=== PATIENT | male | born 1965 | race Caucasian/White ===

== ENCOUNTER → 2016-07-26 | Outpatient (CLI) | payer OTHER | END | disposition home or self-care (01) | LOC: LABPAT 10:18 | PROVIDERS: ATTEND Surgery | DX: Z11.2 Encounter for screening for other bacterial diseases (principal) | CPT/HCPCS: 87070 ==

== ENCOUNTER 2016-08-12 08:32 | Day surgery (SDC) | payer OTHER ==
[2016-07-30 15:37] VITALS: BMI 26.6
[~2016-08-12 08:32] MED LIST: DEXAMETHASONE SOD PHOSPHATE 10 MG/ML 1 ML VIAL IV ONE; HEPARIN SODIUM,PORCINE 5,000 UNIT/ML 1 ML VIAL SQ ONE; LIDOCAINE 1% 20 ML VIAL (10MG/ML) FOR IV START INTRADERMA PRN; ONDANSETRON 4 MG/2 ML VIAL IVP ONE; PIPERACILLIN-TAZOBACTAM 3.375 GM in DEXTROSE/WATER 1 50ML.BAG IVPB ONE; SCOPOLAMINE 1.5MG/72HR PATCH TRANSDERM ONE; VANCOMYCIN 1,150 MG in SODIUM CHLORIDE 0.9% 250 ML IVPB ONE; VANCOMYCIN 1,250 MG in SODIUM CHLORIDE 0.9% 250 ML IVPB ONE
--- NOTE | 2016-08-12 09:05 | P.GSHP ---
History of Present Illness H&P Date: 08/12/16 Chief Complaint: Right inguinal hernia 50 yrs presents with right groin bulge and pain. History of Subdural hematoma nd craniotomy at [facility] in 12/2015. He has left sided hemiparesis secondary to stroke. History of mitral valve disorder. Active smoker 1/2- 1PPD ROS Additionally reports: Constitutional: No fever, chills or rigors. No weight loss or loss of appetite. HEENT: No difficulty with hearing, vision and swallowing. Lymphatic: No axillary, inguinal and cervical swellings. Endocrine: No thyroid disorders. Denies history of diabetes. Respiratory: No chest pain, shortness of breath, and cough. No hemoptysis. Cardiovascular: No palpitations, irregular HR Gastrointestinal: Denies heartburn. No change in bowel habits. No nausea or vomiting. Genitourinary: No increase in urinary frequency or urgency. No hematuria. Musculoskeletal: No back pain, joint stiffness or pain. Neurologic: Left hemiparesis Psychiatric: Denies depression or anxiety . No suicidal ideation. Hematologic: Denies any abnormal mucosal bleeding or easy bruising. Physical Exam Patient is a 50-year-old male. Constitutional: General Appearance: too thin. Level of Distress: NAD. Ambulation : ambulation with cane. Psychiatric: Insight: good judgement. Orientation: to time, place, and person. Head: Head: normocephalic and atraumatic. Eyes: Lids and Conjunctivae: no discharge or pallor and non-injected. Sclerae: non-icteric. ENMT: Oropharynx: moist mucous membranes. Abdomen: Bowel Sounds: normal. Inspection and Palpation: no tenderness or guarding and soft and non-distended. Hernia: inguinal KAREN. Musculoskeletal:: Joints, Bones, and Muscles: left hemiparesis . Wears brace .. Extremities: no cyanosis or edema. Neurologic: Gait and Station: irregular gait. Cranial Nerves: grossly intact. Assessment / Plan 1.Bilateral inguinal hernias-reducible/initial 2. Informed consent obtained from the patient after explaining the risks, benefits and potential complications of laparoscopic /robotic ventral hernia including bleeding, infection, bruising, DVT and recurrence and possibility of converting to open 3. Patient demonstrated understanding of the procedure and agreed to undergo laparoscopic/robotic ventral hernia repair with mesh possible open 4. Expected post op course discussed including no heavy lifting >10 lbs for 6 weeks post surgery 5. Cardiac assessment noted- Intermediate to high risk secondary to mitral regurgitation, pulmonary hypertension. Discussed with the patient. 6. Smoking cessation prior to sx Preop orders: 1. Vancomycin and Zosyn IVPB 2. Bilateral lower extremity SCDs 3. Heparin 5000 Units SQ injection x1 1. Bilateral inguinal hernia - Bilateral K40.20: Bilateral inguinal hernia, without obstruction or gangrene, not specified as recurrent CARDIOLOGY REFERRAL - Schedule Within: provider's discretion Past Medical History Past Medical History: CVA/TIA Additional Past Medical History / Comment(s): Son states history of " stroke with mitral valve damage to heart and minimal mobility to left hand." Son states "has not had PCP for past 3 months and so therefore has not been taking any of his previously prescribed medications." History of Any Multi-Drug Resistant Organisms: None Reported Additional Past Surgical History / Comment(s): Hx having hematoma on head incised and drained. Past Anesthesia/Blood Transfusion Reactions: No Reported Reaction Past Psychological History: No Psychological Hx Reported Smoking Status: Current every day smoker Past Alcohol Use History: None Reported Additional Past Alcohol Use History / Comment(s): Smoker for last 20 yrs, 1 PPD. Past Drug Use History: None Reported - Past Family History Father Family Medical History: Diabetes Mellitus, Deep Vein Thrombosis (DVT) Medications and Allergies Home Medications Medication Instructions Recorded Confirmed Type Motrin(Unknown Dose) 07/30/16 History Nicotinepatch (Unknown Dose) 07/30/16 History Tylenol(Unknown Dose) 07/30/16 History Allergies Allergy/AdvReac Type Severity Reaction Status Date / Time No Known Allergies Allergy Verified 07/30/16 15:22
[2016-08-12] MEDS: LACTATED RINGERS 1,000 ML IV SCH ×2 (09:19→09:23)
[2016-08-12] MEDS ORDERED: LIDOCAINE 1% INJ 10MG/ML (20 ML MDV) ONE (09:49)
[2016-08-12] MEDS ORDERED: ROCURONIUM BROMIDE 10 MG/ML 10 ML VIAL IV ONE (09:49)
[2016-08-12] MEDS ORDERED: MIDAZOLAM 2 MG/2 ML VIAL ONE (09:49)
[2016-08-12] MEDS ORDERED: ESMOLOL 100 MG/10 ML VIAL ONE (09:49)
[2016-08-12] MEDS ORDERED: HYDROmorphone (PF) 1 MG/ML ONE (09:49)
[2016-08-12] MEDS ORDERED: fentaNYL (PF) 50 MCG/ML 2 ML AMP ONE (09:49)
[2016-08-12] MEDS ORDERED: SUCCINYLCHOLINE CHLORIDE 100 MG/5 ML SYR IV ONE (09:49)
[2016-08-12] MEDS ORDERED: PROPOFOL 10 MG/ML 20 ML VIAL IV ONE (09:49)
[2016-08-12] MEDS ORDERED: GLYCOPYRROLATE 0.2 MG/ML 2 ML VIAL ONE (09:49)
[2016-08-12] MEDS ORDERED: NEOSTIGMINE 1 MG/ML 10 ML VIAL ONE (09:49)
[2016-08-12] MEDS ORDERED: BUPIVACAIN-EPI 0.25%-1:200,000 30 ML VIAL SQ ONE ×2 (10:13)
[2016-08-12] MEDS ORDERED: LACTATED RINGERS 1,000 ML IV ONE ×2 (11:33→15:26)
[2016-08-12 12:50] VITALS: TEMP 98.4
[2016-08-12] MEDS ORDERED: ONDANSETRON 4 MG/2 ML VIAL IVP ONE (12:53)
[2016-08-12] MEDS: HYDROmorphone 1 MG/ML 1 ML SYRINGE IVP PRN ×2 (12:57→13:03)
[2016-08-12 13:16] VITALS: RESP 16
[2016-08-12] MEDS ORDERED: HYDROcodone/APAP 5-325MG 1 EACH TAB PO ONE (14:14)
[2016-08-12 15:47] VITALS: BP 157/94; PULSE 103
--- NOTE | 2016-09-30 18:03 | P.OP ---
Date of Procedure: 08/12/16 Preoperative Diagnosis: Right inguinal hernia Postoperative Diagnosis: Same Procedure(s) Performed: RObotic assist laparoscopic right inguinal hernia repair with mesh Implants: Covidien Progrip Anesthesia: DEREKA, local Surgeon: Jade Iglesias Pathology: none sent Condition: stable Disposition: PACU Indications for Procedure: 50 yrs old male presents with right inguinal hernia. Informed consent obtained for robotic assist laparoscopic right inguinal hernia repair with mesh possible bilateral. Operative Findings: Right indirect hernia Description of Procedure: The patient was brought to the operating room and placed in supine position. General anesthesia with endotracheal intubation was performed as per anesthesia team. Both arms were tucked against the abdominal wall and a shunt was positioned in lithotomy using yellowfin stirrups. A mckeon catheter was inserted under sterile aseptic precautions. Chlorhexidine was used to prep the skin followed by application of sterile drapes and Ioban dressing. A timeout was performed to verify correct patient, correct procedure and correct side. Patient was confirmed to receive perioperative IV antibiotics, subcutaneous heparin 5000 units and bilateral SCDs were placed. A 2 mm skin incision was made in the left subcostal area and Veress needle was inserted to establish pneumoperitoneum to a pressure of 15 mmHg. A 1.5 cm supraumbilical incision was made which was deepened through the subcutaneous tissue . Two additional 8 mm skin incisions were made on either side of the midline approximately 8 cm away. A 5 mm 30 laparoscope was used to enter the peritoneum using direct Optiview technique. A 12 mm robotic trocar was inserted in the supraumbilical area and 8 mm robotic trocars were inserted on either side of the midline. The patient was placed in Trendelenburg position and the robot was brought in between the legs. The robotic arms including the camera arm were docked on the trocars. The robotic prograsp and monopolar scissors were introduced via arm 1 and 2 respectively. Upon inspection of the peritoneal cavity, right indirect hernia was identified. The heard anatomical landmarks including the pubic symphysis, median and medial umbilical ligaments and bilateral epigastric vessels were identified. Using monopolar scissors a peritoneal flap was created extending medially from the median umbilical ligament and laterally to the direct hernia space. Using gentle traction and countertraction the flap was developed posteriorly. Loose fibrofatty tissue was bluntly dissected. Medially the dissection was carried along the Nilson's ligament till pubic tubercle was identified. Care was taken to stay away from the urinary bladder. Dissection was carried out to leave the epigastric vessels against the anterior abdominal wall and laterally beyond the hernia defect. The indirect hernia sac was completely reduced. The iliofemoral vessels were identified. The peritoneal reflection overlying the spermatic cord was also dissected off. Care was taken not to injure any gonadal vessels or spermatic cord. Enough inferior dissection was carried out 2 cm below the hernia defect. No direct hernia noted. Laparoscopic Covidien progrip mesh was rolled and introduced through the 12 mm camera port. The right mesh was placed in the preperitoneal cavity with green portion overlying the pubic tubercle . The mesh was rolled upwards so that the mesh covered the direct , indirect inguinal hernia and the femoral hernia space without any kinks or folds. The peritoneal flap was then sutured to the cut edge of the peritoneum using continuous 2-0 V lock sutures. The hernia sac was completely reduced and the mesh lay flat without any kinks or folds. The robotic arms were then undocked and 30 degree laparoscope was inserted. All the needles were removed from the abdominal cavity. The 12 mm camera trocar site was closed with 2 transfascial sutures of 0 Vicryl. The sponge, instrument and needle count were correct x2. The skin was closed with interrupted sutures of 4-0 Monocryl. Dermabond skin glue was applied followed by Telfa and Tegaderm dressing. Mckeon catheter was removed and scrotum was palpated to confirm the position of the testicles. The patient tolerated the procedure well and was taken to post anesthesia care unit in stable condition
== END 2016-08-12 16:25 | disposition home or self-care (01) ==
LOC: OR 08:32
PROVIDERS: ATTEND Surgery
DX: K40.90 Unilateral inguinal hernia, without obstruction or gangrene, not specified as recurrent (principal); K41.90 Unilateral femoral hernia, without obstruction or gangrene, not specified as recurrent; I27.2 Other secondary pulmonary hypertension; I69.354 Hemiplegia and hemiparesis following cerebral infarction affecting left non-dominant side; I10 Essential (primary) hypertension; F17.200 Nicotine dependence, unspecified, uncomplicated; I34.0 Nonrheumatic mitral (valve) insufficiency; E78.2 Mixed hyperlipidemia; Z79.899 Other long term (current) drug therapy; Z79.1 Long term (current) use of non-steroidal anti-inflammatories (NSAID)
CPT/HCPCS: 93005; 49650; 49659; C1781; J2250; J3370; J1644; J1100; J2710; J2405; J2001; J3010; J1170; J2543; J0330; J2704

== ENCOUNTER 2017-01-24 18:27 | Inpatient (IN) | payer OTHER ==
[2017-01-24] MEDS ORDERED: SODIUM CHLORIDE 0.9% 500 ML IV STA (18:56)
[2017-01-24] MEDS ORDERED: IPRATROPIUM 0.5 MG/2.5 ML NEBU INHALATION STA (18:56)
[2017-01-24] MEDS ORDERED: ALBUTEROL NEBULIZED 2.5 MG/3 ML INHALATION STA (18:56)
[2017-01-24] MEDS ORDERED: SODIUM CHLORIDE 0.9% 1,000 ML IV STA (18:56)
--- NOTE | 2017-01-24 18:56 | ED ---
General Adult HPI - General Chief complaint: Chest Pain Stated complaint: chest tightness, elham, Hx COPD Time Seen by Provider: 01/24/17 18:33 Source: patient, RN notes reviewed, old records reviewed Mode of arrival: wheelchair Limitations: no limitations - History of Present Illness Initial comments: This is a 51-year-old male here with chest tightness or severe chest tightness 1 week. History of COPD, patient has significant chest soreness chest pain and shortness of breath. Racing. No change in medications, denies drugs or alcohol. No fevers - Related Data Home Medications Medication Instructions Recorded Confirmed Cpm/PE/Dm/Acetaminophen/Guaifn 2 tab PO Q4H PRN 01/24/17 01/24/17 [Tylenol Cold-Flu Day-Nt Caplet] Allergies Allergy/AdvReac Type Severity Reaction Status Date / Time No Known Allergies Allergy Verified 01/24/17 19:09 Review of Systems ROS Statement: Those systems with pertinent positive or pertinent negative responses have been documented in the HPI. ROS Other: All systems not noted in ROS Statement are negative. Past Medical History Past Medical History: CVA/TIA Additional Past Medical History / Comment(s): Son states history of " stroke with mitral valve damage to heart and minimal mobility to left hand." Son states "has not had PCP for past 3 months and so therefore has not been taking any of his previously prescribed medications." History of Any Multi-Drug Resistant Organisms: None Reported Additional Past Surgical History / Comment(s): Hx having hematoma on head incised and drained. Past Anesthesia/Blood Transfusion Reactions: No Reported Reaction Past Psychological History: No Psychological Hx Reported Smoking Status: Current every day smoker Past Alcohol Use History: None Reported Past Drug Use History: None Reported - Past Family History Father Family Medical History: Diabetes Mellitus, Deep Vein Thrombosis (DVT) General Exam Limitations: no limitations General appearance: anxious Head exam: Present: atraumatic, normocephalic, normal inspection Eye exam: Present: normal appearance, PERRL, EOMI. Absent: scleral icterus, conjunctival injection, periorbital swelling ENT exam: Present: normal exam, mucous membranes moist Neck exam: Present: normal inspection. Absent: tenderness, meningismus, lymphadenopathy Respiratory exam: Present: normal lung sounds bilaterally, wheezes. Absent: respiratory distress, rales, rhonchi, stridor Cardiovascular Exam: Present: tachycardia, irregular rhythm, normal heart sounds. Absent: systolic murmur, diastolic murmur, rubs, gallop, clicks GI/Abdominal exam: Present: soft, normal bowel sounds. Absent: distended, tenderness, guarding, rebound, rigid Extremities exam: Present: normal inspection, full ROM, normal capillary refill. Absent: tenderness, pedal edema, joint swelling, calf tenderness Back exam: Present: normal inspection Neurological exam: Present: alert, oriented X3, CN II-XII intact Psychiatric exam: Present: normal affect, normal mood Skin exam: Present: warm, dry, intact, normal color. Absent: rash Course Vital Signs 01/24/17 01/24/17 01/24/17 18:29 19:10 19:22 Temperature 97.4 F L Pulse Rate 107 H 110 H 107 H Respiratory 18 20 Rate Blood Pressure 114/86 123/75 O2 Sat by Pulse 98 100 Oximetry 01/24/17 01/24/17 01/24/17 19:35 19:42 19:48 Temperature Pulse Rate 112 H 106 H 103 H Respiratory 20 Rate Blood Pressure 117/80 O2 Sat by Pulse 100 Oximetry EKG Findings - EKG Comments: EKG Findings:: EKG shows A. fib with RVR rate of 113, QRS 108, QTC 477 Medical Decision Making - Medical Decision Making 51 male to the ER with chest pain shortness of breath. History of COPD CT negative will admit for COPD and A. fib with RVR - Lab Data Result diagrams: 01/24/17 18:55 01/24/17 18:55 Lab Results 01/24/17 01/24/17 01/24/17 Range/Units 18:55 18:55 18:55 WBC 8.5 (3.8-10.6) k/uL RBC 4.12 L (4.30-5.90) m/uL Hgb 12.9 L (13.0-17.5) gm/dL Hct 40.0 (39.0-53.0) % MCV 97.1 (80.0-100.0) fL MCH 31.3 (25.0-35.0) pg MCHC 32.2 (31.0-37.0) g/dL RDW 15.0 (11.5-15.5) % Plt Count 250 (150-450) k/uL Neutrophils % 70 % Lymphocytes % 22 % Monocytes % 4 % Eosinophils % 1 % Basophils % 0 % Neutrophils # 5.9 (1.3-7.7) k/uL Lymphocytes # 1.9 (1.0-4.8) k/uL Monocytes # 0.4 (0-1.0) k/uL Eosinophils # 0.1 (0-0.7) k/uL Basophils # 0.0 (0-0.2) k/uL Hypochromasia Moderate PT (9.0-12.0) sec INR (<1.2) APTT (22.0-30.0) sec D-Dimer (<0.60) mg/L FEU Sodium 142 (137-145) mmol/L Potassium 4.2 (3.5-5.1) mmol/L Chloride 110 H (98-107) mmol/L Carbon Dioxide 22 (22-30) mmol/L Anion Gap 10 mmol/L BUN 21 H (9-20) mg/dL Creatinine 1.16 (0.66-1.25) mg/dL Est GFR (MDRD) Af Amer >60 (>60 ml/min/1.73 sqM) Est GFR (MDRD) Non-Af >60 (>60 ml/min/1.73 sqM) Glucose 84 (74-99) mg/dL Calcium 8.9 (8.4-10.2) mg/dL Magnesium 1.6 (1.6-2.3) mg/dL Total Bilirubin 0.4 (0.2-1.3) mg/dL AST 22 (17-59) U/L ALT 28 (21-72) U/L Alkaline Phosphatase 64 (38-126) U/L Total Creatine Kinase 82 (55-170) U/L CK-MB (CK-2) 2.7 H* (0.0-2.4) ng/mL CK-MB (CK-2) Rel Index 3.3 Troponin I <0.012 (0.000-0.034) ng/mL NT-Pro-B Natriuret Pep pg/mL Total Protein 7.2 (6.3-8.2) g/dL Albumin 4.1 (3.5-5.0) g/dL 01/24/17 01/24/17 Range/Units 18:55 18:55 WBC (3.8-10.6) k/uL RBC (4.30-5.90) m/uL Hgb (13.0-17.5) gm/dL Hct (39.0-53.0) % MCV (80.0-100.0) fL MCH (25.0-35.0) pg MCHC (31.0-37.0) g/dL RDW (11.5-15.5) % Plt Count (150-450) k/uL Neutrophils % % Lymphocytes % % Monocytes % % Eosinophils % % Basophils % % Neutrophils # (1.3-7.7) k/uL Lymphocytes # (1.0-4.8) k/uL Monocytes # (0-1.0) k/uL Eosinophils # (0-0.7) k/uL Basophils # (0-0.2) k/uL Hypochromasia PT 11.7 (9.0-12.0) sec INR 1.2 H (<1.2) APTT 23.5 (22.0-30.0) sec D-Dimer 2.31 H (<0.60) mg/L FEU Sodium (137-145) mmol/L Potassium (3.5-5.1) mmol/L Chloride (98-107) mmol/L Carbon Dioxide (22-30) mmol/L Anion Gap mmol/L BUN (9-20) mg/dL Creatinine (0.66-1.25) mg/dL Est GFR (MDRD) Af Amer (>60 ml/min/1.73 sqM) Est GFR (MDRD) Non-Af (>60 ml/min/1.73 sqM) Glucose (74-99) mg/dL Calcium (8.4-10.2) mg/dL Magnesium (1.6-2.3) mg/dL Total Bilirubin (0.2-1.3) mg/dL AST (17-59) U/L ALT (21-72) U/L Alkaline Phosphatase (38-126) U/L Total Creatine Kinase (55-170) U/L CK-MB (CK-2) (0.0-2.4) ng/mL CK-MB (CK-2) Rel Index Troponin I (0.000-0.034) ng/mL NT-Pro-B Natriuret Pep 4580 pg/mL Total Protein (6.3-8.2) g/dL Albumin (3.5-5.0) g/dL Critical Care Time Critical Care Time: Yes Total Critical Care Time: 31 Disposition Clinical Impression: Chest pain, COPD with acute bronchitis, Atrial fibrillation with RVR Disposition: ADMITTED IP TO THIS HOSP Condition: Fair Referrals: Aishwarya Godinez MD [Primary Care Provider] - 1-2 days
[2017-01-24 19:19] LABS: ALT 28 U/L (21-72); AST 22 U/L (17-59); Alkaline Phosphatase 64 U/L (38-126); Anion Gap 10 mmol/L; Blood Urea Nitrogen 21 mg/dL (9-20); Calcium 8.9 mg/dL (8.4-10.2); Carbon Dioxide 22 mmol/L (22-30); Chloride 110 mmol/L (98-107); Glucose 84 mg/dL (74-99); Magnesium 1.6 mg/dL (1.6-2.3); Non-African American GFR(MDRD) >60 (>60 ml/min/1.73 sqM); Potassium 4.2 mmol/L (3.5-5.1); Sodium 142 mmol/L (137-145); Total Bilirubin 0.4 mg/dL (0.2-1.3); Total Protein 7.2 g/dL (6.3-8.2)
[2017-01-24] MEDS ORDERED: DILTIAZEM 5 MG/ML 5 ML VIAL IVP STA (19:22)
[2017-01-24 19:28] LABS: Basophils % (A) 0 %; CH 29.9; CHCM 30.9; Eosinophils # (A) 0.1 k/uL (0-0.7); Eosinophils % (A) 1 %; HDW 2.82; HGB 12.9 gm/dL (13.0-17.5); Hypochromasia Moderate; Luc # (Auto) 0.21; Luc % (Auto) 2; Lymphocytes # (A) 1.9 k/uL (1.0-4.8); Lymphocytes % (A) 22 %; MCH 31.3 pg (25.0-35.0); MCHC 32.2 g/dL (31.0-37.0); MCV 97.1 fL (80.0-100.0); Mean Platelet Volume 7.9; Monocytes # (A) 0.4 k/uL (0-1.0); Monocytes % (A) 4 %; Neutrophils # (A) 5.9 k/uL (1.3-7.7); Neutrophils % (A) 70 %; RBC 4.12 m/uL (4.30-5.90); WBC 8.5 k/uL (3.8-10.6); WBC (Perox) 9.16
[2017-01-24] MEDS ORDERED: DILTIAZEM 125 MG in SODIUM CHLORIDE 0.9% 100 ML IV ONE (19:30)
[2017-01-24 19:31] LABS: Creatine Kinase 82 U/L (55-170); INR 1.2 (<1.2); Partial Thromboplastin Time 23.5 sec (22.0-30.0); Prothrombin Time 11.7 sec (9.0-12.0)
[2017-01-24 19:44] LABS: Troponin I <0.012 ng/mL (0.000-0.034)
[2017-01-24 19:50] LABS: Creatine Kinase MB 2.7 ng/mL (0.0-2.4)
[2017-01-24] MEDS ORDERED: IPRATROPIUM-ALBUTEROL 3 ML NEB INHALATION STA (20:01)
[2017-01-24] MEDS ORDERED: RX INFO: IV CONTRAST WAS GIVEN 1 EACH MISC MISCELLANE PRN (20:01)
[2017-01-24] MEDS ORDERED: HEPARIN SODIUM,PORCINE 5,000 UNIT/ML 1 ML VIAL IV ONE (20:01)
[2017-01-24] MEDS ORDERED: HEPARIN SODIUM,PORCINE 5,000 UNIT/ML 1 ML VIAL IV PRN (20:01)
[2017-01-24] MEDS ORDERED: ASPIRIN 81 MG CHEW PO STA (20:01)
[2017-01-24] MEDS ORDERED: NITROGLYCERIN SL TABS 0.4 MG TAB SUBLINGUAL PRN (20:01)
[2017-01-24] MEDS ORDERED: MORPHINE SULFATE 4 MG/ML SYRINGE IVP PRN (20:04)
[2017-01-24] MEDS ORDERED: MORPHINE SULFATE 4 MG/ML SYRINGE IVP STA (20:04)
--- NOTE | 2017-01-24 20:52 | CT ---
EXAMINATION TYPE: CT angio chest DATE OF EXAM: 01/24/2017 8:37 PM COMPARISON: NONE HISTORY: Difficulty breathing and chest tightness. CT DLP: 382.70 mGycm Automated exposure control for dose reduction was used. CONTRAST: CTA scan of the thorax is performed with IV Contrast, patient injected with 82 mL of Omnipaque 350, p ulmonary embolism protocol. There are 3-D post processed images.. FINDINGS: There is diffuse pulmonary emphysema. There is small right pleural effusion. There is coarse intersti tial density in the subpleural lung bases. There is mild consolidation and atelectasis at the posteri or lung bases as well. Heart is enlarged. There is significant enlargement of the left atrium. I see no filling defects in the pulmonary arteries. There is no evidence of aortic aneurysm. There ar e multiple mediastinal lymph nodes that measure up to 2 cm. There are left bronchial lymph nodes up t o 1 cm. The bony thorax is intact.. IMPRESSION: NO EVIDENCE OF PULMONARY EMBOLISM. CARDIOMEGALY AND RIGHT PLEURAL EFFUSION. BASILAR PULMONARY INFILTR ATES AND FIBROTIC CHANGES. THERE COULD BE CONGESTIVE HEART FAILURE. MARKED ENLARGEMENT OF THE LEFT ATRIUM THAT COULD RELATE TO MITRAL STENOSIS. MILD MEDIASTINAL ADENOPATHY.
[2017-01-24] MEDS: HEPARIN SODIUM,PORCINE/D5W PMX 25,000 UNIT in DEXTROSE/WATER 1 500ML.BAG IV SCH (21:06)
[2017-01-24] MEDS: METOPROLOL TARTRATE 50 MG TAB PO SCH (22:53)
[2017-01-24] MEDS: IPRATROPIUM-ALBUTEROL 3 ML NEB INHALATION SCH (23:42)
[2017-01-25] MEDS ORDERED: IPRATROPIUM-ALBUTEROL 3 ML NEB INHALATION SCH
[2017-01-25 02:17] LABS: Creatine Kinase 72 U/L (55-170)
[2017-01-25 02:31] LABS: Creatine Kinase MB 2.1 ng/mL (0.0-2.4); Troponin I <0.012 ng/mL (0.000-0.034)
[2017-01-25] MEDS: IPRATROPIUM-ALBUTEROL 3 ML NEB INHALATION SCH ×4 (07:38→20:54)
[2017-01-25 08:42] LABS: Mean Platelet Volume 8.8
[2017-01-25] MEDS ORDERED: ASPIRIN 325 MG TAB PO SCH (09:00)
[2017-01-25] MEDS: METOPROLOL TARTRATE 50 MG TAB PO SCH ×3 (09:04→20:42)
[2017-01-25 09:13] LABS: Cholesterol 145 mg/dL (<200); HDL Cholesterol 36 mg/dL (40-60)
[2017-01-25 09:17] LABS: Creatine Kinase 68 U/L (55-170)
[2017-01-25 09:30] LABS: Creatine Kinase MB 2.3 ng/mL (0.0-2.4); Troponin I <0.012 ng/mL (0.000-0.034)
[2017-01-25] MEDS ORDERED: ACETAMINOPHEN TAB 325 MG TAB PO PRN (10:45)
--- NOTE | 2017-01-25 11:13 | P.HPIM ---
History of Present Illness H&P Date: 01/25/17 Chief Complaint: Shortness of breath and chest tightness This is a 51-year-old gentleman with past medical history noted below significant for history of CVA with residual left-sided hemiparesis, underlying COPD, and history of paroxysmal atrial fibrillation who presented to the hospital with worsening shortness of breath and chest tightness. Patient said that his symptoms started a few days ago with worsening shortness of breath and cough that was initially productive of yellowish sputum. He said that shortness of breath got progressively worse. Yesterday he started having chest tightness and was more concerned and decided to come to the emergency room for further evaluation. Patient said that he did not have follow-up with his primary care physician for over a year. He is not taking any medications at home. He did not have a good reason why he lost follow-up or why he is not taking any medications at home. He was scheduled to see me as a new patient next week. In the emergency room, 12-lead EKG showed atrial fibrillation with rapid ventricular response. Patient was noted to have an elevated d-dimer the CT angiogram showed no evidence of PE. Patient was started on IV Cardizem drip and IV heparin was admitted to telemetry floor for further evaluation. He remained hemodynamically stable. Review of Systems Review of system: 14 points review of systems were obtained and were negative except to what were mentioned in the HPI. Past Medical History Past Medical History: COPD, CVA/TIA Additional Past Medical History / Comment(s): Son states history of " stroke with mitral valve damage to heart and minimal mobility to left hand." Son states "has not had PCP for past 3 months and so therefore has not been taking any of his previously prescribed medications." History of Any Multi-Drug Resistant Organisms: MRSA Date of last positivie culture/infection: 2007 MDRO Source:: Blood Past Surgical History: Hernia Repair Additional Past Surgical History / Comment(s): Hx having hematoma on head incised and drained. inguinal hernia repair Past Anesthesia/Blood Transfusion Reactions: No Reported Reaction Past Psychological History: No Psychological Hx Reported Smoking Status: Former smoker Past Alcohol Use History: None Reported Additional Past Alcohol Use History / Comment(s): Smoker for last 20 yrs, 1 PPD. patient stated quiting this year in October Past Drug Use History: None Reported - Past Family History Father Family Medical History: Diabetes Mellitus, Deep Vein Thrombosis (DVT) Medications and Allergies Home Medications Medication Instructions Recorded Confirmed Type Cpm/PE/Dm/Acetaminophen/Guaifn 2 tab PO Q4H PRN 01/24/17 01/24/17 History [Tylenol Cold-Flu Day-Nt Caplet] Allergies Allergy/AdvReac Type Severity Reaction Status Date / Time No Known Allergies Allergy Verified 01/24/17 19:09 Physical Exam Vitals: Vital Signs Temp Pulse Pulse Resp BP BP Pulse Ox 01/25/17 09:09 97.5 F L 88 16 107/76 94 L 01/25/17 09:00 16 01/25/17 07:51 96 01/25/17 07:38 92 99 01/25/17 04:00 84 16 104/65 99 01/24/17 22:31 97.1 F L 93 18 120/81 99 01/24/17 22:10 97.4 F L 90 18 127/68 97 01/24/17 21:52 95 01/24/17 21:37 95 01/24/17 21:00 97 18 116/68 97 01/24/17 19:48 103 H 01/24/17 19:42 106 H 20 117/80 100 01/24/17 19:35 112 H 01/24/17 19:22 107 H 20 123/75 100 01/24/17 19:10 110 H 01/24/17 18:29 97.4 F L 107 H 18 114/86 98 Intake and Output 01/24/17 01/25/17 01/25/17 22:59 06:59 14:59 Intake Total 109.155 150.024 Output Total 1 Balance 108.155 150.024 Intake: Intake, IV Titration 109.155 150.024 Amount Heparin Sodium,Porcine/ 109.155 150.024 D5w Pmx 25,000 unit In Dextrose/Water 1 500ml. bag @ 12 UNITS/KG/HR 19. 15 mls/hr IV .Q24H [facility] Rx #:[id number] Output: Urine/Stool Mix 1 Other: Weight 68.9 kg 68.9 kg General: The patient is awake and alert, in no distress, and does not appear acutely ill. Eye: extra-ocular movements are intact; there is normal conjunctiva bilaterally. . Neck: The neck is supple, there is no tenderness or JVD. Cardiovascular: Normal S1-S2, no S3-S4, no murmurs. Respiratory: Lungs are diminished bilaterally with end expiratory wheezing. Gastrointestinal: Abdomen is soft, nontender, nondistended, with no organomegaly. Musculoskeletal: There is no pedal edema. There is chronic contracture of the left upper extremity Neurological: Speech is normal. Skin: Skin is warm and dry Results CBC & Chem 7: 01/25/17 08:29 01/24/17 18:55 Labs: Abnormal Lab Results - Last 24 Hours (Table) 01/24/17 01/24/17 01/24/17 Range/Units 18:55 18:55 18:55 RBC 4.12 L (4.30-5.90) m/uL Hgb 12.9 L (13.0-17.5) gm/dL INR (<1.2) APTT (22.0-30.0) sec D-Dimer (<0.60) mg/L FEU Chloride 110 H (98-107) mmol/L BUN 21 H (9-20) mg/dL CK-MB (CK-2) 2.7 H* (0.0-2.4) ng/mL HDL Cholesterol (40-60) mg/dL 01/24/17 01/25/17 01/25/17 Range/Units 18:55 01:36 08:29 RBC (4.30-5.90) m/uL Hgb (13.0-17.5) gm/dL INR 1.2 H (<1.2) APTT 37.4 H (22.0-30.0) sec D-Dimer 2.31 H (<0.60) mg/L FEU Chloride (98-107) mmol/L BUN (9-20) mg/dL CK-MB (CK-2) (0.0-2.4) ng/mL HDL Cholesterol 36 L (40-60) mg/dL 01/25/17 Range/Units 08:29 RBC (4.30-5.90) m/uL Hgb (13.0-17.5) gm/dL INR (<1.2) APTT 36.5 H (22.0-30.0) sec D-Dimer (<0.60) mg/L FEU Chloride (98-107) mmol/L BUN (9-20) mg/dL CK-MB (CK-2) (0.0-2.4) ng/mL HDL Cholesterol (40-60) mg/dL Thrombosis Risk Factor Assmnt - Choose All That Apply Any of the Below Risk Factors Present?: Yes Each Factor Represents 1 point: Abnormal pulmonary function (COPD), Age 41-60 years Thrombosis Risk Factor Assessment Total Risk Factor Score: 2 Thrombosis Risk Factor Assessment Level: Low Risk Assessment and Plan Plan: 1. Paroxysmal atrial fibrillation with rapid ventricular response on presentation 2. Acute COPD exacerbation 3. Acute bacterial bronchitis 4. History of CVA with residual left-sided hemiparesis Today, I reviewed his medication list and lab work resolved. Patient is maintained on IV Cardizem drip awaiting cardiology evaluation. He is on anticoagulation with IV heparin and bridge with Coumadin. Would obtain echocardiogram of the heart. Would monitor INR daily. We will continue IV steroids and bronchodilators around the clock. Pulmonology consulted for further evaluation. Patient is a former smoker and said that he quit approximately a week ago. Encouraged to continue his effort in regards of smoking cessation. Which finish 5 days of azithromycin 500 mg daily for suspected bronchitis. Continue current regimen otherwise. Repeat lab work in the morning. Appreciate parts consultant's recommendations.
[2017-01-25] MEDS: FUROSEMIDE 20 MG TAB PO SCH (11:30)
[2017-01-25] MEDS: methylPREDNISolone SOD SUCCI 40 MG/ML 1 ML VIAL IV SCH ×3 (12:19→23:07)
[2017-01-25] MEDS: AZITHROMYCIN 500 MG TAB PO SCH (12:19)
--- NOTE | 2017-01-25 15:02 | CONS ---
CONSULTATION Mr. Lopez came in complaining of shortness of breath for the last 1 week or so. No chest discomfort or loss of consciousness. He was found to be in atrial fibrillation with a heart rate of about 130 beats per minute. He was started on IV Cardizem 5 mg/h. He was on carvedilol previously according to Dr. Whitfield's note. He is a patient of Dr. Whitfield in the office. REVIEW OF SYSTEMS: He denies any fever, chills or rigors. No cough or expectoration. No nausea, vomiting, diarrhea, dysuria. No strokes, seizures or skin lesions. No musculoskeletal complaints. PAST HISTORY: Significant mitral regurgitation secondary to an infective endocarditis. He has been evaluated at [facility] many years back. He opted not to have surgery. According to Dr. Whitfield's note his LV size and function was normal earlier this year with a severely dilated left atrium with severe mitral regurgitation. Dobutamine stress echo did not show any evidence for ischemia. There was Dobutamine induced supraventricular tachycardia. Past history of hypertension, dyslipidemia, severe mitral regurgitation, severe pulmonary hypertension. No documented history of atrial fibrillation in the past but during the dobutamine infusion the note states supraventricular tachycardia was noted. FAMILY HISTORY: Noncontributory. MEDICATIONS: Medications at home include: Captopril, carvedilol, simvastatin and other medications. The rest of the lest is documented in the EMR note. PHYSICAL EXAMINATION: On examination, his blood pressure is 107/76 mmHg. He is afebrile at 97.5 degrees Fahrenheit, heart rate in the 80s on IV Cardizem 5 mg an hour along with metoprolol 50 mg twice daily. Head and neck examination shows mild JVD. Breath sounds are reduced bilaterally with no rhonchi and no crackles. Extremities are warm and there is no edema. Precordial auscultation reveals a murmur of mitral regurgitation. No S3 gallop. IMPRESSION: 1. Severe mitral regurgitation. 2. New diagnosis of atrial fibrillation with mild increase in heart rate. 3. A very dilated left atrium previously with LV function reasonably preserved. SUGGEST: 1. 2D echo and Doppler study. 2. Rate control for atrial fibrillation. 3. Anticoagulation with IV heparin followed by Coumadin. 4. I would be treat him with low-dose Lasix 40 mg p.o. daily. Watch his BUN and creatinine and upon discharge treat him with a very low dose of oral Lasix either 20-40 mg p.o. daily. He does not take Lasix at home. 5. His labs are reviewed and his hemoglobin is 12.9. BUN and creatinine are normal. Sodium is normal and troponins are normal. NT proBNP is 4580, LDL is 91. I would check a TSH level on him also. 6. He will follow with Dr. Whitfield as an outpatient. 7. Plan is anticoagulation and rate control in the hospital and very low-dose diuretics and then discharge and follow with Dr. Whitfield. He already had appointment with him. MMODL / IJN: [id number] /
[2017-01-25] MEDS: HEPARIN SODIUM,PORCINE/D5W PMX 25,000 UNIT in DEXTROSE/WATER 1 500ML.BAG IV SCH (16:13)
[2017-01-25] MEDS: MORPHINE SULFATE 4 MG/ML SYRINGE IVP PRN (16:21)
[2017-01-25] MEDS: WARFARIN 5 MG TAB PO SCH (17:51)
[2017-01-25] MEDS ORDERED: WARFARIN 2.5 MG TAB PO SCH (18:00)
[2017-01-25] MEDS ORDERED: METOPROLOL TARTRATE 50 MG TAB PO STA (23:20)
[2017-01-25] MEDS: IPRATROPIUM-ALBUTEROL 3 ML NEB INHALATION PRN (23:41)
[2017-01-26] MEDS: ALPRAZolam 0.5 MG TAB PO PRN ×2 (02:22→20:51)
[2017-01-26] MEDS: DILTIAZEM 125 MG in SODIUM CHLORIDE 0.9% 100 ML IV SCH (03:45)
[2017-01-26 06:23] LABS: Basophils % (A) 0 %; CH 30.7; CHCM 30.8; Eosinophils # (A) 0.1 k/uL (0-0.7); Eosinophils % (A) 1 %; HCT 38.2 % (39.0-53.0); HDW 2.82; HGB 11.7 gm/dL (13.0-17.5); Hypochromasia Moderate; Luc # (Auto) 0.09; Luc % (Auto) 1; Lymphocytes # (A) 1.1 k/uL (1.0-4.8); Lymphocytes % (A) 11 %; MCH 30.8 pg (25.0-35.0); MCHC 30.7 g/dL (31.0-37.0); MCV 100.1 fL (80.0-100.0); Macrocytosis Slight; Mean Platelet Volume 8.7; Monocytes # (A) 0.4 k/uL (0-1.0); Monocytes % (A) 4 %; Neutrophils # (A) 8.3 k/uL (1.3-7.7); Neutrophils % (A) 84 %; RBC 3.81 m/uL (4.30-5.90); WBC 9.9 k/uL (3.8-10.6); WBC (Perox) 10.77
[2017-01-26 06:43] LABS: INR 1.3 (<1.2); Prothrombin Time 12.4 sec (9.0-12.0)
[2017-01-26 06:59] LABS: ALT 30 U/L (21-72); AST 25 U/L (17-59); Alkaline Phosphatase 64 U/L (38-126); Anion Gap 15 mmol/L; Blood Urea Nitrogen 31 mg/dL (9-20); Calcium 9.1 mg/dL (8.4-10.2); Carbon Dioxide 16 mmol/L (22-30); Chloride 109 mmol/L (98-107); Glucose 139 mg/dL (74-99); Magnesium 1.7 mg/dL (1.6-2.3); Non-African American GFR(MDRD) 56 (>60 ml/min/1.73 sqM); Potassium 5.1 mmol/L (3.5-5.1); Sodium 140 mmol/L (137-145); Total Bilirubin 0.3 mg/dL (0.2-1.3)
[2017-01-26] MEDS: IPRATROPIUM-ALBUTEROL 3 ML NEB INHALATION SCH ×4 (08:13→18:56)
[2017-01-26] MEDS: HEPARIN SODIUM,PORCINE/D5W PMX 25,000 UNIT in DEXTROSE/WATER 1 500ML.BAG IV SCH (08:19)
[2017-01-26] MEDS: MORPHINE SULFATE 4 MG/ML SYRINGE IVP PRN ×3 (08:20→22:46)
[2017-01-26] MEDS: FUROSEMIDE 20 MG TAB PO SCH (08:21)
[2017-01-26] MEDS: METOPROLOL TARTRATE 50 MG TAB PO SCH ×2 (08:21→20:49)
[2017-01-26] MEDS: methylPREDNISolone SOD SUCCI 40 MG/ML 1 ML VIAL IV SCH ×3 (08:21→22:47)
[2017-01-26] MEDS: AZITHROMYCIN 500 MG TAB PO SCH (08:21)
[2017-01-26] MEDS ORDERED: Magnesium Replacement Protocol 1 EACH MISC MISCELLANE PRN (09:20)
[2017-01-26] MEDS: FAMOTIDINE 20 MG TAB PO SCH (10:03)
[2017-01-26] MEDS: MAGNESIUM SULFATE-D5W PMX 1 GM in DEXTROSE/WATER 1 100ML.BAG IVPB SCH ×2 (10:36→12:03)
--- NOTE | 2017-01-26 11:17 | ECHOF ---
Referral Reason:Afib MEASUREMENTS -------- HEIGHT: 162.6 cm WEIGHT: 68.5 kg BP: 107/76 IVSd: 1.3 cm (0.6 - 1.1) LVIDd: 5.0 cm (3.9 - 5.3) LVPWd: 1.4 cm (0.6 - 1.1) LVIDs: 3.7 cm LA Diam: 5.2 cm (2.7 - 3.8) RVIDd: 3.6 cm (< 3.3) LAESV Index (A-L): 98.93 ml/m Ao Diam: 3.3 cm (2.0 - 3.7) AV Cusp: 2.0 cm (1.5 - 2.6) EPSS: 0.8 cm AV maxP.62 mmHg AV maxP.62 mmHg AV meanP.96 mmHg RAP: 15.00 mmHg RVSP: 84.18 mmHg MV EF SLOPE: 69.76 mm/s (70 - 150) MV EXCURSION: 15.62 mm (> 18.000) FINDINGS -------- Atrial fibrillation. This was a technically good study. The left ventricular size is normal. There is moderate concentric left ventricular hypertrophy. Overall left ventricular systolic function is low-normal with, an EF between 50 - 55 %. There is septal flattening in diastole and systole which is consistent with right ventricular pressure and volume overload. The right ventricle is mildly enlarged. LA is severely dilated >40 ml/m2 The right atrium is normal in size. Aortic valve is trileaflet and is mildly thickened. Trace to mild aortic regurgitation. The mitral valve leaflets are moderately thickened. Moderate mitral annular calcification present. Ekoxybqu-ja-axlhtl mitral regurgitation is present. The peak and mean MV gradients are 30.48mmHg 13.24mmHg as measured by doppler. Moderate tricuspid regurgitation present. There is severe pulmonary hypertension. The right ventricular systolic pressure, as measured by Doppler, is 84.18mmHg. Trace/mild (physiologic) pulmonic regurgitation. The aortic root size is normal. The inferior vena cava is dilated with poor inspiratory collapse which is consistent with estimated right atrial pressure of 15 mmHg. Small Pleural Effusion. CONCLUSIONS -------- 1. Atrial fibrillation. 2. Aortic valve is trileaflet and is mildly thickened. 3. Trace to mild aortic regurgitation. 4. The mitral valve leaflets are moderately thickened. 5. Moderate mitral annular calcification present. 6. Oqogpgmp-ny-hpqzrr mitral regurgitation is present. 7. The peak and mean MV gradients are 30.48mmHg 13.24mmHg as measured by doppler. 8. Moderate tricuspid regurgitation present. 9. There is severe pulmonary hypertension. 10. The right ventricular systolic pressure, as measured by Doppler, is 84.18mmHg. 11. Trace/mild (physiologic) pulmonic regurgitation. 12. This was a technically good study. 13. The aortic root size is normal. 14. The inferior vena cava is dilated with poor inspiratory collapse which is consistent with estimated right atrial pressure of 15 mmHg. 15. Small Pleural Effusion. 16. The left ventricular size is normal. 17. There is moderate concentric left ventricular hypertrophy. 18. Overall left ventricular systolic function is low-normal with, an EF between 50 - 55 %. 19. There is septal flattening in diastole and systole which is consistent with right ventricular pressure and volume overload. 20. The right ventricle is mildly enlarged. 21. LA is severely dilated >40 ml/m2 22. The right atrium is normal in size. MANAGER SOCIAL WORK: Leida Friedman RDCS
--- NOTE | 2017-01-26 13:25 | P.PN ---
Subjective Patient is doing better today. No palpitation. Shortness of breath improving. Objective - Vital Signs Vital signs: Vital Signs Temp 97.3 F L 01/26/17 08:15 Pulse 96 01/26/17 12:06 Resp 16 01/26/17 12:06 BP 119/74 01/26/17 12:06 Pulse Ox 95 01/26/17 12:06 Intake & Output 01/25/17 01/26/17 01/26/17 18:59 06:59 18:59 Intake Total 595.444 699.553 Output Total 1150 Balance 595.444 -1150 699.553 Weight 70 kg Intake: Intake, IV Titration 355.444 462.553 Amount Heparin Sodium,Porcine/ 355.444 462.553 D5w Pmx 25,000 unit In Dextrose/Water 1 500ml. bag @ 12 UNITS/KG/HR 19. 15 mls/hr IV .Q24H [facility] Rx #:[id number] Oral 240 237 Output: Urine 1150 Other: # Voids 2 - Exam General: The patient is awake and alert, in no distress Eye: there is normal conjunctiva bilaterally. Neck: The neck is supple, there is no JVD. Cardiovascular: Normal S1-S2, no S3-S4, no murmurs. Respiratory: Lungs clear to auscultation bilaterally Gastrointestinal: Abdomen is soft, nontender Musculoskeletal: There is no pedal edema. Neurological:. Speech is normal. Skin: Skin is warm and dry - Labs CBC & Chem 7: 01/26/17 05:56 01/26/17 05:56 Labs: Abnormal Lab Results - Last 24 Hours (Table) 01/25/17 01/26/17 01/26/17 Range/Units 14:34 05:56 05:56 RBC 3.81 L (4.30-5.90) m/uL Hgb 11.7 L (13.0-17.5) gm/dL Hct 38.2 L (39.0-53.0) % MCV 100.1 H (80.0-100.0) fL MCHC 30.7 L (31.0-37.0) g/dL RDW 16.0 H (11.5-15.5) % Neutrophils # 8.3 H (1.3-7.7) k/uL PT (9.0-12.0) sec INR (<1.2) APTT 62.2 H (22.0-30.0) sec Chloride 109 H (98-107) mmol/L Carbon Dioxide 16 L (22-30) mmol/L BUN 31 H (9-20) mg/dL Creatinine 1.35 H (0.66-1.25) mg/dL Glucose 139 H (74-99) mg/dL 01/26/17 Range/Units 05:56 RBC (4.30-5.90) m/uL Hgb (13.0-17.5) gm/dL Hct (39.0-53.0) % MCV (80.0-100.0) fL MCHC (31.0-37.0) g/dL RDW (11.5-15.5) % Neutrophils # (1.3-7.7) k/uL PT 12.4 H (9.0-12.0) sec INR 1.3 H (<1.2) APTT 64.0 H (22.0-30.0) sec Chloride (98-107) mmol/L Carbon Dioxide (22-30) mmol/L BUN (9-20) mg/dL Creatinine (0.66-1.25) mg/dL Glucose (74-99) mg/dL Assessment and Plan Plan: 1. Paroxysmal atrial fibrillation with rapid ventricular response on presentation 2. Acute COPD exacerbation 3. Acute bacterial bronchitis 4. History of CVA with residual left-sided hemiparesis 5. Moderate to severe mitral regurgitation 6. Moderate tricuspid regurgitation Today, I reviewed his medication list and lab work resolved. Patient is maintained on IV Cardizem drip. Cardiology following. He is on anticoagulation with IV heparin and bridge with Coumadin. Echocardiogram of the heart showed ejection fraction 50-55%, and a severely dilated. Would monitor INR daily. We will continue IV steroids and bronchodilators around the clock. Pulmonology consulted for further evaluation. Patient is a former smoker and said that he quit approximately a week ago. Encouraged to continue his effort in regards of smoking cessation. Which finish 5 days of azithromycin 500 mg daily for suspected bronchitis. Continue current regimen otherwise. Repeat lab work in the morning. Appreciate client support consultant's recommendations.
--- NOTE | 2017-01-26 14:46 | P.PN ---
Subjective Patient is lying comfortably in bed. He certainly remains in atrial fibrillation resting heart rate of 100 beats a minute and therefore the dose of metoprolol was increased to 100 mg twice daily Murmur of mitral regurgitation on precordial auscultation. Breath sounds are reduced bilaterally with occasional crackles at the bases bilaterally abdomen soft nontender extremities are warm no edema Impression Mitral valve disease, mitral regurgitation os history of endocarditis past history for surgical evaluation at [facility] New onset atrial fibrillation with RVR Plan Anticoagulate with Coumadin Continue heparin until INR is therapeutic rate control with metoprolol 100 mg twice daily Objective - Vital Signs Vital signs: Vital Signs Temp 97.3 F L 01/26/17 08:15 Pulse 96 01/26/17 12:06 Resp 16 01/26/17 12:06 BP 119/74 01/26/17 12:06 Pulse Ox 95 01/26/17 12:06 Intake & Output 01/25/17 01/26/17 01/26/17 18:59 06:59 18:59 Intake Total 781.040 4259.553 Output Total 1150 300 Balance 595.444 -1150 799.553 Weight 70 kg Intake: IV 400 Diltiazem 125 mg In 40 Sodium Chloride 0.9% 100 ml @ 5 MG/HR 5 mls/hr IV .Q24H [facility] Rx#:[id number] Heparin Sodium,Porcine/ 160 D5w Pmx 25,000 unit In Dextrose/Water 1 500ml. bag @ 12 UNITS/KG/HR 19. 15 mls/hr IV .Q24H [facility] Rx #:[id number] Magnesium Sulfate-D5w Pmx 200 1 gm In Dextrose/Water 1 100ml.bag @ 100 mls/hr IVPB Q1H [facility] Rx#: [id number] Intake, IV Titration 355.444 462.553 Amount Heparin Sodium,Porcine/ 355.444 462.553 D5w Pmx 25,000 unit In Dextrose/Water 1 500ml. bag @ 12 UNITS/KG/HR 19. 15 mls/hr IV .Q24H [facility] Rx #:[id number] Oral 240 237 Output: Urine 1150 300 Other: # Voids 2 - Labs CBC & Chem 7: 01/26/17 05:56 01/26/17 05:56 Labs: Abnormal Lab Results - Last 24 Hours (Table) 01/25/17 01/26/17 01/26/17 Range/Units 14:34 05:56 05:56 RBC 3.81 L (4.30-5.90) m/uL Hgb 11.7 L (13.0-17.5) gm/dL Hct 38.2 L (39.0-53.0) % MCV 100.1 H (80.0-100.0) fL MCHC 30.7 L (31.0-37.0) g/dL RDW 16.0 H (11.5-15.5) % Neutrophils # 8.3 H (1.3-7.7) k/uL PT (9.0-12.0) sec INR (<1.2) APTT 62.2 H (22.0-30.0) sec Chloride 109 H (98-107) mmol/L Carbon Dioxide 16 L (22-30) mmol/L BUN 31 H (9-20) mg/dL Creatinine 1.35 H (0.66-1.25) mg/dL Glucose 139 H (74-99) mg/dL 01/26/17 Range/Units 05:56 RBC (4.30-5.90) m/uL Hgb (13.0-17.5) gm/dL Hct (39.0-53.0) % MCV (80.0-100.0) fL MCHC (31.0-37.0) g/dL RDW (11.5-15.5) % Neutrophils # (1.3-7.7) k/uL PT 12.4 H (9.0-12.0) sec INR 1.3 H (<1.2) APTT 64.0 H (22.0-30.0) sec Chloride (98-107) mmol/L Carbon Dioxide (22-30) mmol/L BUN (9-20) mg/dL Creatinine (0.66-1.25) mg/dL Glucose (74-99) mg/dL
--- NOTE | 2017-01-26 14:47 | P.CNPUL ---
History of Present Illness Consult date: 01/26/17 Reason for consult: dyspnea, COPD History of present illness: A 51-year-old male patient, a chronic smoker who carries more than [id number] smoking history, presented to the hospital because of increased shortness of breath, chest tightness, wheezing and he was producing yellow or sputum. The patient was also found to be in atrial flutter ablation with rapid ventricular response. A CT angios the chest was done knowing that her d-dimer was elevated and the CTA images showed no evidence of any pulmonary embolism, and there was diffuse emphysema related to smoking and the limited right basilar infiltration/ atelectasis. No malignancy. Mediastinum was within normal limits. The patient was started on a Cardizem drip for rate control. The patient was started on IV heparin. COPD exacerbation was treated with a combination of bronchodilators, IV Rocephin and Zithromax and IV steroids. Note that the CT angios the chest also showed significant dilatation of the left atrium. For that reason a echocardiogram was done and the patient was found to have moderate to severe mitral regurgitation, severe pulmonary hypertension, hypertensive heart disease with a preserved LV function and ejection fraction of 50-55%, yet the PA pressure was quite elevated in the 70 mmHg range. This patient has had previous history of CVA with some residual left-sided weakness. Clinically is feeling better compared to yesterday. Review of Systems Constitutional: Reports fatigue, Reports weakness Eyes: denies blurred vision, denies bulging eye, denies decreased vision Ears: deny: decreased hearing, ear discharge, earache Ears, nose, mouth and throat: Denies headache, Denies sore throat Cardiovascular: Reports decreased exercise tolerance, Reports dyspnea on exertion, Reports irregular heart beat, Reports rapid heart beat, Reports shortness of breath Respiratory: Reports cough, Reports dyspnea, Reports wheezing Gastrointestinal: Denies abdominal pain, Denies diarrhea, Denies nausea, Denies vomiting Genitourinary: Reports as per HPI Musculoskeletal: Reports as per HPI Musculoskeletal: absent: ankle pain, ankle stiffness, ankle swelling Integumentary: Denies pruritus, Denies rash Neurological: Reports weakness, Denies numbness Psychiatric: Denies anxiety, Denies depression Endocrine: Denies fatigue, Denies weight change Past Medical History Past Medical History: COPD, CVA/TIA Additional Past Medical History / Comment(s): CVA with some left-sided residual weakness, paroxysmal atrial fibrillation, mitral valve disease which is consistent with severe mitral regurgitation based on the most his echocardiogram , COPD History of Any Multi-Drug Resistant Organisms: MRSA Date of last positivie culture/infection: 2007 MDRO Source:: Blood Past Surgical History: Hernia Repair Additional Past Surgical History / Comment(s): Hx having hematoma on head incised and drained. inguinal hernia repair Past Anesthesia/Blood Transfusion Reactions: No Reported Reaction Past Psychological History: No Psychological Hx Reported Smoking Status: Former smoker Past Alcohol Use History: None Reported Additional Past Alcohol Use History / Comment(s): Smoker for last 20 yrs, 1 PPD. patient stated quiting this year in October Past Drug Use History: None Reported - Past Family History Father Family Medical History: Diabetes Mellitus, Deep Vein Thrombosis (DVT) Medications and Allergies Home Medications Medication Instructions Recorded Confirmed Type Cpm/PE/Dm/Acetaminophen/Guaifn 2 tab PO Q4H PRN 01/24/17 01/24/17 History [Tylenol Cold-Flu Day-Nt Caplet] Allergies Allergy/AdvReac Type Severity Reaction Status Date / Time No Known Allergies Allergy Verified 01/24/17 19:09 Physical Exam Vitals: Vital Signs Temp Pulse Pulse Resp BP Pulse Ox 01/26/17 12:06 96 16 119/74 95 01/26/17 12:00 16 01/26/17 11:28 100 01/26/17 11:15 96 01/26/17 08:26 100 01/26/17 08:15 97.3 F L 104 H 16 130/51 100 01/26/17 08:13 100 97 01/26/17 05:29 112 H 121/77 01/26/17 04:31 97.1 F L 124 H 18 116/93 99 01/26/17 00:00 124 H 18 100/79 98 01/25/17 23:58 97.4 F L 128 H 18 144/97 96 01/25/17 23:52 108 H 01/25/17 23:42 104 H 01/25/17 21:08 90 01/25/17 20:54 88 01/25/17 20:00 97.9 F 116 H 18 125/76 97 01/25/17 16:29 90 01/25/17 16:19 92 98 01/25/17 16:17 97.3 F L 110 H 16 103/66 98 01/25/17 16:10 16 Intake and Output 01/25/17 01/26/17 01/26/17 22:59 06:59 14:59 Intake Total 445.42 1099.553 Output Total 650 500 300 Balance -204.58 -500 799.553 Intake: IV 400 Diltiazem 125 mg In 40 Sodium Chloride 0.9% 100 ml @ 5 MG/HR 5 mls/hr IV .Q24H [facility] Rx#:[id number] Heparin Sodium,Porcine/ 160 D5w Pmx 25,000 unit In Dextrose/Water 1 500ml. bag @ 12 UNITS/KG/HR 19. 15 mls/hr IV .Q24H [facility] Rx #:[id number] Magnesium Sulfate-D5w Pmx 200 1 gm In Dextrose/Water 1 100ml.bag @ 100 mls/hr IVPB Q1H [facility] Rx#: [id number] Intake, IV Titration 205.42 462.553 Amount Heparin Sodium,Porcine/ 205.42 462.553 D5w Pmx 25,000 unit In Dextrose/Water 1 500ml. bag @ 12 UNITS/KG/HR 19. 15 mls/hr IV .Q24H [facility] Rx #:[id number] Oral 240 237 Output: Urine 650 500 300 Other: Weight 70 kg Head exam was generally normal. There was no scleral icterus or corneal arcus. Mucous membranes were moist.Neck was supple and without jugular venous distension, thyromegaly, or carotid bruits. Carotids were easily palpable bilaterally. There was no adenopathy. Lung sounds are diminished and there is prolongation of expiratory phase of breathing and scattered external wheezes throughout the lung calloway bilaterally. Heart sounds are irregular, this ejection murmur grade 2/6 heard throughout the precordium specially in the left lateral sternal border. There is also accentuation of second heart sound.Abdominal exam revealed normal bowel sounds. The abdomen was soft, non- tender, and without masses, organomegaly, or appreciable enlargement of the abdominal aorta. Examination of the extremities revealed easily palpable radial , femoral and pedal pulses. There was no cyanosis, clubbing or edema. Results - Laboratory Findings CBC and BMP: 01/26/17 05:56 01/26/17 05:56 PT/INR, D-dimer PT 12.4 sec (9.0-12.0) H 01/26/17 05:56 INR 1.3 (<1.2) H 01/26/17 05:56 D-Dimer 2.31 mg/L FEU (<0.60) H 01/24/17 18:55 Abnormal lab findings: Abnormal Labs 01/24/17 01/24/17 01/24/17 18:55 18:55 18:55 RBC 4.12 L Hgb 12.9 L Hct MCV MCHC RDW Neutrophils # PT INR APTT D-Dimer Chloride 110 H Carbon Dioxide BUN 21 H Creatinine Glucose CK-MB (CK-2) 2.7 H* HDL Cholesterol 01/24/17 01/25/17 01/25/17 18:55 01:36 08:29 RBC Hgb Hct MCV MCHC RDW Neutrophils # PT INR 1.2 H APTT 37.4 H D-Dimer 2.31 H Chloride Carbon Dioxide BUN Creatinine Glucose CK-MB (CK-2) HDL Cholesterol 36 L 01/25/17 01/25/17 01/26/17 08:29 14:34 05:56 RBC 3.81 L Hgb 11.7 L Hct 38.2 L MCV 100.1 H MCHC 30.7 L RDW 16.0 H Neutrophils # 8.3 H PT INR APTT 36.5 H 62.2 H D-Dimer Chloride Carbon Dioxide BUN Creatinine Glucose CK-MB (CK-2) HDL Cholesterol 01/26/17 01/26/17 05:56 05:56 RBC Hgb Hct MCV MCHC RDW Neutrophils # PT 12.4 H INR 1.3 H APTT 64.0 H D-Dimer Chloride 109 H Carbon Dioxide 16 L BUN 31 H Creatinine 1.35 H Glucose 139 H CK-MB (CK-2) HDL Cholesterol - Diagnostic Findings CT scan - chest: image reviewed Assessment and Plan Plan: Assessment 1 acute COPD exacerbation, with symptoms of bronchitis and possible early right lower lobe pneumonia 2 atrial fibrillation with rapid ventricular response currently on Cardizem drip and IV heparin 3 moderate to severe mitral regurgitation and secondary pulmonary hypertension 4 hypertensive heart disease with concentric the physical hypertrophy and a preserved left with ejection fraction 5 CVA with some residual left-sided weakness/hemiparalysis 6 nicotine addiction/smoking and the patient carries more than [id number]-aiss smoking history Plan In terms of the acute COPD exacerbation, the patient is to quit smoking on a long-term basis and the current acute exacerbation be treated with a combination of bronchodilators, steroids and antibiotics. Clinically is improved compared to yesterday. Nevertheless, he still having issues with atrial fibrillation. Rate control be achieved with a Cardizem drip. Continue IV heparin. Long-term and to coagulation with warfarin. The patient has significant degree of pulmonary hypertension related to mitral regurgitation left-sided failure/valvular disease. We'll discuss it cardiology. The need for mitral valve repair with also discussed with cardiology. This patient has over the valvular some limited his enlargement and significant pulmonary hypertension. Smoking cessation counseling was also done.
[2017-01-26] MEDS: WARFARIN 5 MG TAB PO SCH (17:47)
[2017-01-27] MEDS: DILTIAZEM 125 MG in SODIUM CHLORIDE 0.9% 100 ML IV SCH (03:30)
[2017-01-27] MEDS: ALPRAZolam 0.5 MG TAB PO PRN ×2 (04:42→23:28)
[2017-01-27] MEDS: IPRATROPIUM-ALBUTEROL 3 ML NEB INHALATION PRN ×2 (04:48→23:39)
[2017-01-27 06:34] LABS: Basophils % (A) 0 %; CH 29.4; CHCM 29.6; Eosinophils % (A) 0 %; HCT 36.9 % (39.0-53.0); HDW 2.73; HGB 11.4 gm/dL (13.0-17.5); Hypochromasia Marked; Luc # (Auto) 0.15; Luc % (Auto) 1; Lymphocytes # (A) 0.9 k/uL (1.0-4.8); Lymphocytes % (A) 7 %; MCH 30.8 pg (25.0-35.0); MCHC 30.8 g/dL (31.0-37.0); Macrocytosis Slight; Mean Platelet Volume 8.3; Monocytes # (A) 0.5 k/uL (0-1.0); Monocytes % (A) 3 %; Neutrophils # (A) 12.1 k/uL (1.3-7.7); Neutrophils % (A) 89 %; RBC 3.69 m/uL (4.30-5.90); RDW 15.2 % (11.5-15.5); WBC 13.7 k/uL (3.8-10.6); WBC (Perox) 14.48
[2017-01-27 06:50] LABS: INR 1.7 (<1.2); Partial Thromboplastin Time 72.5 sec (22.0-30.0)
[2017-01-27 07:21] LABS: ALT 30 U/L (21-72); AST 23 U/L (17-59); Alkaline Phosphatase 63 U/L (38-126); Anion Gap 15 mmol/L; Blood Urea Nitrogen 41 mg/dL (9-20); Calcium 9.1 mg/dL (8.4-10.2); Carbon Dioxide 14 mmol/L (22-30); Chloride 107 mmol/L (98-107); Glucose 118 mg/dL (74-99); Magnesium 2.1 mg/dL (1.6-2.3); Non-African American GFR(MDRD) 51 (>60 ml/min/1.73 sqM); Potassium 5.4 mmol/L (3.5-5.1); Sodium 136 mmol/L (137-145); Total Bilirubin 0.5 mg/dL (0.2-1.3); Total Protein 6.6 g/dL (6.3-8.2)
[2017-01-27] MEDS: FUROSEMIDE 20 MG TAB PO SCH (08:11)
[2017-01-27] MEDS: methylPREDNISolone SOD SUCCI 40 MG/ML 1 ML VIAL IV SCH (08:11)
[2017-01-27] MEDS: AZITHROMYCIN 500 MG TAB PO SCH (08:11)
[2017-01-27] MEDS: METOPROLOL TARTRATE 50 MG TAB PO SCH ×2 (08:11→21:16)
[2017-01-27] MEDS: FAMOTIDINE 20 MG TAB PO SCH (08:11)
[2017-01-27] MEDS: IPRATROPIUM-ALBUTEROL 3 ML NEB INHALATION SCH ×4 (08:22→20:00)
--- NOTE | 2017-01-27 10:24 | P.PN ---
Subjective Patient states he is doing well. No shortness of breath while lying in bed no chest discomfort. He is atrial fibrillation and severe valvular heart disease, pulse rate in the 80s and 90s, blood pressure 129/93 mmHg afebrile Head and neck examination normal no JVD heart sounds is a systolic murmur audible consistent with mitral regurgitation breath sounds are reduced bilaterally no rhonchi no crackles Abdomen is soft nontender Extremities warm No edema Impression Valvular heart disease with this severe mitral regurgitation History of infective endocarditis and a history of workup at [facility] many years back for possible surgery. I'm not sure of the details Now with atrial fibrillation with RVR Very dilated atrium. Previously the LV function appeared to be preserved in the setting of severe mitral regurgitation Plan Oral Lasix Anticoagulation Rate control INR is 1.7 today I would continue heparin until his INR reaches 2.0 and then discharge him and follow up with Dr. Cordoba Objective - Vital Signs Vital signs: Vital Signs Temp 95.0 F L 01/27/17 08:06 Pulse 96 01/27/17 08:37 Resp 16 01/27/17 08:06 BP 129/93 01/27/17 08:06 Pulse Ox 100 01/27/17 08:24 Intake & Output 01/26/17 01/27/17 01/27/17 18:59 06:59 18:59 Intake Total 1099.553 128.75 Output Total 300 200 Balance 799.553 -71.25 Weight 70 kg Intake: IV 400 10 Diltiazem 125 mg In 40 10 Sodium Chloride 0.9% 100 ml @ 5 MG/HR 5 mls/hr IV .Q24H [facility] Rx#:[id number] Heparin Sodium,Porcine/ 160 D5w Pmx 25,000 unit In Dextrose/Water 1 500ml. bag @ 12 UNITS/KG/HR 19. 15 mls/hr IV .Q24H [facility] Rx #:[id number] Magnesium Sulfate-D5w Pmx 200 1 gm In Dextrose/Water 1 100ml.bag @ 100 mls/hr IVPB Q1H [facility] Rx#: [id number] Intake, IV Titration 462.553 118.75 Amount Diltiazem 125 mg In 118.75 Sodium Chloride 0.9% 100 ml @ 5 MG/HR 5 mls/hr IV .Q24H [facility] Rx#:[id number] Heparin Sodium,Porcine/ 462.553 D5w Pmx 25,000 unit In Dextrose/Water 1 500ml. bag @ 12 UNITS/KG/HR 19. 15 mls/hr IV .Q24H [facility] Rx #:[id number] Oral 237 Output: Urine 300 200 Other: # Voids 250 # Bowel Movements 1 - Labs CBC & Chem 7: 01/27/17 05:27 01/27/17 05:27 Labs: Abnormal Lab Results - Last 24 Hours (Table) 01/27/17 01/27/17 01/27/17 Range/Units 05:27 05:27 05:27 WBC 13.7 H (3.8-10.6) k/uL RBC 3.69 L (4.30-5.90) m/uL Hgb 11.4 L (13.0-17.5) gm/dL Hct 36.9 L (39.0-53.0) % MCHC 30.8 L (31.0-37.0) g/dL Neutrophils # 12.1 H (1.3-7.7) k/uL Lymphocytes # 0.9 L (1.0-4.8) k/uL PT 16.0 H (9.0-12.0) sec INR 1.7 H (<1.2) APTT 72.5 H (22.0-30.0) sec Sodium 136 L (137-145) mmol/L Potassium 5.4 H (3.5-5.1) mmol/L Carbon Dioxide 14 L (22-30) mmol/L BUN 41 H (9-20) mg/dL Creatinine 1.48 H (0.66-1.25) mg/dL Glucose 118 H (74-99) mg/dL
[2017-01-27] MEDS ORDERED: SODIUM POLYSTYRENE SULFONATE 15 GM/60 ML BOTTLE PO STA (11:35)
--- NOTE | 2017-01-27 12:20 | P.PN ---
Subjective Patient is doing better today. No palpitation. Shortness of breath improving. Objective - Vital Signs Vital signs: Vital Signs Temp 95.0 F L 01/27/17 08:06 Pulse 92 01/27/17 12:08 Resp 16 01/27/17 08:06 BP 129/93 01/27/17 08:06 Pulse Ox 98 01/27/17 10:00 Intake & Output 01/26/17 01/27/17 01/27/17 18:59 06:59 18:59 Intake Total 1099.553 128.75 Output Total 300 200 Balance 799.553 -71.25 Weight 70 kg Intake: IV 400 10 Diltiazem 125 mg In 40 10 Sodium Chloride 0.9% 100 ml @ 5 MG/HR 5 mls/hr IV .Q24H [facility] Rx#:[id number] Heparin Sodium,Porcine/ 160 D5w Pmx 25,000 unit In Dextrose/Water 1 500ml. bag @ 12 UNITS/KG/HR 19. 15 mls/hr IV .Q24H [facility] Rx #:[id number] Magnesium Sulfate-D5w Pmx 200 1 gm In Dextrose/Water 1 100ml.bag @ 100 mls/hr IVPB Q1H [facility] Rx#: [id number] Intake, IV Titration 462.553 118.75 Amount Diltiazem 125 mg In 118.75 Sodium Chloride 0.9% 100 ml @ 5 MG/HR 5 mls/hr IV .Q24H [facility] Rx#:[id number] Heparin Sodium,Porcine/ 462.553 D5w Pmx 25,000 unit In Dextrose/Water 1 500ml. bag @ 12 UNITS/KG/HR 19. 15 mls/hr IV .Q24H [facility] Rx #:[id number] Oral 237 Output: Urine 300 200 Other: # Voids 250 # Bowel Movements 1 - Exam General: The patient is awake and alert, in no distress Eye: there is normal conjunctiva bilaterally. Neck: The neck is supple, there is no JVD. Cardiovascular: Normal S1-S2, no S3-S4, no murmurs. Respiratory: Lungs clear to auscultation bilaterally Gastrointestinal: Abdomen is soft, nontender Musculoskeletal: There is no pedal edema. Neurological:. Speech is normal. Skin: Skin is warm and dry - Labs CBC & Chem 7: 01/27/17 05:27 01/27/17 05:27 Labs: Abnormal Lab Results - Last 24 Hours (Table) 01/27/17 01/27/17 01/27/17 Range/Units 05:27 05:27 05:27 WBC 13.7 H (3.8-10.6) k/uL RBC 3.69 L (4.30-5.90) m/uL Hgb 11.4 L (13.0-17.5) gm/dL Hct 36.9 L (39.0-53.0) % MCHC 30.8 L (31.0-37.0) g/dL Neutrophils # 12.1 H (1.3-7.7) k/uL Lymphocytes # 0.9 L (1.0-4.8) k/uL PT 16.0 H (9.0-12.0) sec INR 1.7 H (<1.2) APTT 72.5 H (22.0-30.0) sec Sodium 136 L (137-145) mmol/L Potassium 5.4 H (3.5-5.1) mmol/L Carbon Dioxide 14 L (22-30) mmol/L BUN 41 H (9-20) mg/dL Creatinine 1.48 H (0.66-1.25) mg/dL Glucose 118 H (74-99) mg/dL Assessment and Plan Plan: 1. Paroxysmal atrial fibrillation with rapid ventricular response on presentation 2. Acute COPD exacerbation 3. Acute bacterial bronchitis 4. History of CVA with residual left-sided hemiparesis 5. Moderate to severe mitral regurgitation 6. Moderate tricuspid regurgitation Today, I reviewed his medication list and lab work resolved. Patient is maintained on IV Cardizem drip. Cardiology following. He is on anticoagulation with IV heparin and bridge with Coumadin. Echocardiogram of the heart showed ejection fraction 50-55%, and a severely dilated. Would monitor INR daily. We will continue steroids and bronchodilators around the clock. Pulmonology consulted for further evaluation. Patient is a former smoker and said that he quit approximately a week ago. Encouraged to continue his effort in regards of smoking cessation. Will finish 5 days of azithromycin 500 mg daily for suspected bronchitis. Change steroids to oral prednisone. Awaiting Coumadin bridging for INR above 2. Continue current regimen otherwise. Repeat lab work in the morning. Appreciate building performance consultant's recommendations. Anticipated discharge home tomorrow.
--- NOTE | 2017-01-27 13:23 | P.PN ---
Subjective A 51-year-old male patient, a chronic smoker who carries more than [id number] smoking history, presented to the hospital because of increased shortness of breath, chest tightness, wheezing and he was producing yellow or sputum. The patient was also found to be in atrial flutter ablation with rapid ventricular response. A CT angios the chest was done knowing that her d-dimer was elevated and the CTA images showed no evidence of any pulmonary embolism, and there was diffuse emphysema related to smoking and the limited right basilar infiltration/ atelectasis. No malignancy. Mediastinum was within normal limits. The patient was started on a Cardizem drip for rate control. The patient was started on IV heparin. COPD exacerbation was treated with a combination of bronchodilators, IV Rocephin and Zithromax and IV steroids. Note that the CT angios the chest also showed significant dilatation of the left atrium. For that reason a echocardiogram was done and the patient was found to have moderate to severe mitral regurgitation, severe pulmonary hypertension, hypertensive heart disease with a preserved LV function and ejection fraction of 50-55%, yet the PA pressure was quite elevated in the 70 mmHg range. This patient has had previous history of CVA with some residual left-sided weakness. Clinically is feeling better compared to yesterday. On today's evaluation of 01/27/2017, the patient is less short of breath. The patient's acute COPD exacerbation is improving and is less bronchospastic and wheezy compared to yesterday. Minimal cough without any significant sputum production. No hemoptysis. The patient also has been in atrial fibrillation and he is on IV heparin and the PT/INR is subtherapeutic with an INR of 1.7. Cardizem drip for rate control. Note that he has moderate to severe mitral regurgitation severe pulmonary hypertension with a preserved LV function. Objective - Vital Signs Vital signs: Vital Signs Temp 95.0 F L 01/27/17 08:06 Pulse 88 01/27/17 12:21 Resp 16 01/27/17 08:06 BP 129/93 01/27/17 08:06 Pulse Ox 98 01/27/17 10:00 Intake & Output 01/26/17 01/27/17 01/27/17 18:59 06:59 18:59 Intake Total 1099.553 128.75 Output Total 300 200 Balance 799.553 -71.25 Weight 70 kg Intake: IV 400 10 Diltiazem 125 mg In 40 10 Sodium Chloride 0.9% 100 ml @ 5 MG/HR 5 mls/hr IV .Q24H [facility] Rx#:[id number] Heparin Sodium,Porcine/ 160 D5w Pmx 25,000 unit In Dextrose/Water 1 500ml. bag @ 12 UNITS/KG/HR 19. 15 mls/hr IV .Q24H [facility] Rx #:[id number] Magnesium Sulfate-D5w Pmx 200 1 gm In Dextrose/Water 1 100ml.bag @ 100 mls/hr IVPB Q1H [facility] Rx#: [id number] Intake, IV Titration 462.553 118.75 Amount Diltiazem 125 mg In 118.75 Sodium Chloride 0.9% 100 ml @ 5 MG/HR 5 mls/hr IV .Q24H [facility] Rx#:[id number] Heparin Sodium,Porcine/ 462.553 D5w Pmx 25,000 unit In Dextrose/Water 1 500ml. bag @ 12 UNITS/KG/HR 19. 15 mls/hr IV .Q24H [facility] Rx #:[id number] Oral 237 Output: Urine 300 200 Other: # Voids 250 # Bowel Movements 1 - Exam Head exam was generally normal. There was no scleral icterus or corneal arcus. Mucous membranes were moist.Neck was supple and without jugular venous distension, thyromegaly, or carotid bruits. Carotids were easily palpable bilaterally. There was no adenopathy. Lung sounds are diminished and there is prolongation of expiratory phase of breathing and scattered external wheezes throughout the lung calloway bilaterally. Heart sounds are irregular, this ejection murmur grade 2/6 heard throughout the precordium specially in the left lateral sternal border. There is also accentuation of second heart sound.Abdominal exam revealed normal bowel sounds. The abdomen was soft, non- tender, and without masses, organomegaly, or appreciable enlargement of the abdominal aorta. Examination of the extremities revealed easily palpable radial , femoral and pedal pulses. There was no cyanosis, clubbing or edema. - Labs CBC & Chem 7: 01/27/17 05:27 01/27/17 05:27 Labs: Abnormal Lab Results - Last 24 Hours (Table) 01/27/17 01/27/17 01/27/17 Range/Units 05:27 05:27 05:27 WBC 13.7 H (3.8-10.6) k/uL RBC 3.69 L (4.30-5.90) m/uL Hgb 11.4 L (13.0-17.5) gm/dL Hct 36.9 L (39.0-53.0) % MCHC 30.8 L (31.0-37.0) g/dL Neutrophils # 12.1 H (1.3-7.7) k/uL Lymphocytes # 0.9 L (1.0-4.8) k/uL PT 16.0 H (9.0-12.0) sec INR 1.7 H (<1.2) APTT 72.5 H (22.0-30.0) sec Sodium 136 L (137-145) mmol/L Potassium 5.4 H (3.5-5.1) mmol/L Carbon Dioxide 14 L (22-30) mmol/L BUN 41 H (9-20) mg/dL Creatinine 1.48 H (0.66-1.25) mg/dL Glucose 118 H (74-99) mg/dL Assessment and Plan Plan: Assessment 1 acute COPD exacerbation, with symptoms of bronchitis and possible early right lower lobe pneumonia, clinically improving 2 atrial fibrillation with rapid ventricular response currently on Cardizem drip and IV heparin, rates under better control and INR is subtherapeutic 3 moderate to severe mitral regurgitation and secondary pulmonary hypertension 4 hypertensive heart disease with concentric the physical hypertrophy and a preserved left with ejection fraction 5 CVA with some residual left-sided weakness/hemiparalysis 6 nicotine addiction/smoking and the patient carries more than [id number] smoking history Plan Continue same treatment for another 24 hours , the patient should be able to transition to oral Cardizem. This will be left up to cardiology. Continue IV heparin awaiting a therapeutic INR and the patient is being given warfarin a daily basis. Complete the course of antibiotics. Continue bronchodilators. Stopped IV Solu Medrol start the patient on a prednisone burst taper. We'll follow.
[2017-01-27] MEDS: WARFARIN 5 MG TAB PO SCH (17:53)
[2017-01-27] MEDS ORDERED: guaiFENesin SYRUP 100MG/5ML 200 MG/10 ML CUP PO PRN (18:52)
[2017-01-27] MEDS ORDERED: HYDROcodone/APAP 5-325MG 1 EACH TAB PO PRN (18:52)
[2017-01-27] MEDS: HEPARIN SODIUM,PORCINE/D5W PMX 25,000 UNIT in DEXTROSE/WATER 1 500ML.BAG IV SCH (19:18)
[2017-01-28] MEDS: MORPHINE SULFATE 4 MG/ML SYRINGE IVP PRN (04:11)
[2017-01-28 04:53] VITALS: RESP 20
[2017-01-28] MEDS: DILTIAZEM 125 MG in SODIUM CHLORIDE 0.9% 100 ML IV SCH (05:02)
[2017-01-28 06:12] LABS: INR 2.5 (<1.2); Prothrombin Time 23.8 sec (9.0-12.0)
[2017-01-28 06:13] LABS: Basophils % (A) 0 %; CH 29.3; CHCM 30.1; Eosinophils % (A) 0 %; HCT 37.2 % (39.0-53.0); HDW 2.78; HGB 11.6 gm/dL (13.0-17.5); Hypochromasia Marked; Luc % (Auto) 3; Lymphocytes # (A) 1.3 k/uL (1.0-4.8); Lymphocytes % (A) 11 %; MCH 30.6 pg (25.0-35.0); MCHC 31.2 g/dL (31.0-37.0); MCV 98.2 fL (80.0-100.0); Macrocytosis Slight; Monocytes # (A) 0.8 k/uL (0-1.0); Monocytes % (A) 6 %; Neutrophils # (A) 9.8 k/uL (1.3-7.7); Neutrophils % (A) 80 %; RBC 3.79 m/uL (4.30-5.90); RDW 15.2 % (11.5-15.5); WBC 12.2 k/uL (3.8-10.6); WBC (Perox) 12.56
[2017-01-28 06:22] LABS: Calcium 8.9 mg/dL (8.4-10.2); Magnesium 2.1 mg/dL (1.6-2.3); Potassium 5.3 mmol/L (3.5-5.1); Total Bilirubin 0.7 mg/dL (0.2-1.3); Total Protein 6.6 g/dL (6.3-8.2)
[2017-01-28 06:30] LABS: Partial Thromboplastin Time 115.8 sec (22.0-30.0)
[2017-01-28] MEDS: AZITHROMYCIN 500 MG TAB PO SCH (07:58)
[2017-01-28] MEDS: FAMOTIDINE 20 MG TAB PO SCH (07:58)
[2017-01-28] MEDS: METOPROLOL TARTRATE 50 MG TAB PO SCH (07:59)
[2017-01-28] MEDS: IPRATROPIUM-ALBUTEROL 3 ML NEB INHALATION SCH ×2 (08:21→12:05)
[2017-01-28] MEDS ORDERED: predniSONE 20 MG TAB PO SCH (09:00)
[2017-01-28 09:26] VITALS: BMI 26.5
--- NOTE | 2017-01-28 11:41 | P.PN ---
Subjective Principal diagnosis: Atrial fibrillation This is a 51-year-old gentleman who follows regularly with Dr. Whitfield in the office. He has a significant history for mitral regurgitation and history of infective endocarditis. Prior CVA, hypertension, hyperlipidemia, pulmonary hypertension, presented to the hospital primarily with symptoms of progressively worsening shortness of breath. He was found to be in atrial fibrillation appeared to be of new onset for him. He continues to be in atrial fibrillation this morning, his rate is under adequate control. His INR this morning is 2.5. Sodium 134, potassium 5.3, BUN 49, creatinine 1.6. Blood pressure 108/70, heart rate in the 90s. Objective - Vital Signs Vital signs: Vital Signs Temp 97.6 F 01/28/17 08:03 Pulse 108 H 01/28/17 08:37 Resp 20 01/28/17 08:03 BP 107/73 01/28/17 08:03 Pulse Ox 94 L 01/28/17 08:25 Intake & Output 01/27/17 01/28/17 01/28/17 18:59 06:59 18:59 Intake Total 465 671.776 360 Output Total 1450 300 Balance -985 371.776 360 Weight 70.2 kg 70.2 kg Intake: Intake, IV Titration 321.776 0 Amount Heparin Sodium,Porcine/ 321.776 0 D5w Pmx 25,000 unit In Dextrose/Water 1 500ml. bag @ 12 UNITS/KG/HR 19. 15 mls/hr IV .Q24H [facility] Rx #:[id number] Oral 465 350 360 Output: Urine 1450 300 Other: # Voids 250 1 # Bowel Movements 1 - Exam PHYSICAL EXAMINATION: HEENT: Head is atraumatic, normocephalic. Pupils equal, round. Neck is supple. There is no elevated jugular venous pressure. HEART EXAMINATION: Heart S1 and S2 irregular irregular a systolic murmur is heard. CHEST EXAMINATION: Lungs reveal scattered coarse rhonchi throughout. ABDOMEN: Soft, nontender. Bowel sounds are heard. No organomegaly noted. EXTREMITIES: 2+ peripheral pulses with no evidence of peripheral edema and no calf tenderness noted. NEUROLOGIC patient is awake, alert and oriented -3. . - Labs CBC & Chem 7: 01/28/17 05:32 01/28/17 05:32 Labs: Abnormal Lab Results - Last 24 Hours (Table) 01/28/17 01/28/17 01/28/17 Range/Units 05:32 05:32 05:32 WBC 12.2 H (3.8-10.6) k/uL RBC 3.79 L (4.30-5.90) m/uL Hgb 11.6 L (13.0-17.5) gm/dL Hct 37.2 L (39.0-53.0) % Neutrophils # 9.8 H (1.3-7.7) k/uL PT 23.8 H (9.0-12.0) sec INR 2.5 H (<1.2) APTT 115.8 H* (22.0-30.0) sec Sodium 134 L (137-145) mmol/L Potassium 5.3 H (3.5-5.1) mmol/L Carbon Dioxide 14 L (22-30) mmol/L BUN 49 H (9-20) mg/dL Creatinine 1.66 H (0.66-1.25) mg/dL Assessment and Plan (1) Chronic a-fib Status: Acute (2) Severe mitral regurgitation Status: Acute (3) Infective endocarditis Narrative/Plan: Patient has history of infetive endocarditis Status: Acute (4) Atrial fibrillation with RVR Status: Acute (5) COPD with acute bronchitis Status: Acute (6) Severe mitral regurgitation Status: Acute (7) HTN (hypertension) Status: Acute (8) Nicotine dependence Status: Acute (9) CVA (cerebral vascular accident) Status: Acute Plan: From cardiology's perspective, patient may be able to be discharged home today. He has a follow-up appointment already scheduled with Dr. Cordoba which he has been advised to keep. Coumadin management as per his primary care physician Dr. Godinez. DNP note has been reviewed, I agree with a documented findings and plan of care. Patient was seen and examined.
[2017-01-28 11:57] VITALS: BP 119/89; TEMP 97.7
--- NOTE | 2017-01-28 12:06 | P.DS ---
Providers Date of admission: 01/24/17 20:03 Expected date of discharge: 01/28/17 Attending physician: Aishwarya Godinez Consults: 01/24/17 20:01 Consult Physician Urgent Consulting Provider: Demarco Hewitt Consult Reason/Comments: cp Do you want consulting provider notified?: Yes 01/25/17 10:17 Consult Physician Routine Consulting Provider: Jeannine Roberts Consult Reason/Comments: COPD Do you want consulting provider notified?: Yes Primary care physician: [facility] Course: 1. Paroxysmal atrial fibrillation with rapid ventricular response on presentation, new onset 2. Acute COPD exacerbation 3. Acute bacterial bronchitis 4. History of CVA with residual left-sided hemiparesis 5. Moderate to severe mitral regurgitation 6. Moderate tricuspid regurgitation Patient will be discharged home in a stable condition. He will follow-up with me in the office in the next couple of days. Please refer to the electronic chart for further details about this hospitalization. Encouraged oral hydration and plan for repeat BMP within the next few days. Patient Condition at Discharge: Fair Plan - Discharge Summary New Discharge Prescriptions: New Metoprolol Tartrate [Lopressor] 100 mg PO BID #60 tab predniSONE 40 mg PO DAILY #10 tab Warfarin Sodium [Coumadin] 4 mg PO HS #30 tablet Discontinued Cpm/PE/Dm/Acetaminophen/Guaifn [Tylenol Cold-Flu Day-Nt Caplet] 2 tab PO Q4H PRN PRN Reason: Cold Symptoms Discharge Medication List Metoprolol Tartrate [Lopressor] 100 mg PO BID #60 tab 01/28/17 [Rx] Warfarin Sodium [Coumadin] 4 mg PO HS #30 tablet 01/28/17 [Rx] predniSONE 40 mg PO DAILY #10 tab 01/28/17 [Rx] Follow up Appointment(s)/Referral(s): Aishwarya Godinez MD [Primary Care Provider] - 1 Week
[2017-01-28 12:14] VITALS: PULSE 100
== END 2017-01-28 13:51 | disposition home or self-care (01) | DRG 309 ==
LOC: EC 18:27 → 6SEL 20:03
PROVIDERS: ADMIT Internal Medicine; ATTEND Internal Medicine
DX: I48.0 Paroxysmal atrial fibrillation (principal); J44.1 Chronic obstructive pulmonary disease with (acute) exacerbation; I27.2 Other secondary pulmonary hypertension; J44.0 Chronic obstructive pulmonary disease with (acute) lower respiratory infection; I11.9 Hypertensive heart disease without heart failure; I69.354 Hemiplegia and hemiparesis following cerebral infarction affecting left non-dominant side; I08.1 Rheumatic disorders of both mitral and tricuspid valves; T46.6X6A Underdosing of antihyperlipidemic and antiarteriosclerotic drugs, initial encounter; R79.1 Abnormal coagulation profile; I48.2 Chronic atrial fibrillation; T44.7X6A Underdosing of beta-adrenoreceptor antagonists, initial encounter; T46.4X6A Underdosing of angiotensin-converting-enzyme inhibitors, initial encounter; E78.5 Hyperlipidemia, unspecified; J20.8 Acute bronchitis due to other specified organisms; R53.1 Weakness; R07.9 Chest pain, unspecified; M24.50 Contracture, unspecified joint; Z71.3 Dietary counseling and surveillance; Z86.14 Personal history of Methicillin resistant Staphylococcus aureus infection; Z82.49 Family history of ischemic heart disease and other diseases of the circulatory system; Z83.3 Family history of diabetes mellitus; Z71.6 Tobacco abuse counseling; Z86.19 Personal history of other infectious and parasitic diseases; Z86.79 Personal history of other diseases of the circulatory system; Z91.14 Patient's other noncompliance with medication regimen; Z91.19 Patient's noncompliance with other medical treatment and regimen; Z79.899 Other long term (current) drug therapy; Z87.891 Personal history of nicotine dependence; Z51.81 Encounter for therapeutic drug level monitoring
CPT/HCPCS: 36415; 71275; 80053; 80061; 82550; 82553; 83735; 83880; 84484; 85025; 85049; 85379; 85610; 85730; 93005; 93306; 94640; 94644; 94760; 96365; 96368; 96375; 96376; 99291

== ENCOUNTER → 2017-01-30 | Outpatient (CLI) | payer OTHER ==
[2017-01-30 13:34] LABS: INR 6.3 (<1.2)
== END | disposition home or self-care (01) ==
LOC: LABWHC1 12:15
PROVIDERS: ATTEND Internal Medicine
DX: J44.9 Chronic obstructive pulmonary disease, unspecified (principal); I48.91 Unspecified atrial fibrillation
CPT/HCPCS: 36415; 85610

== ENCOUNTER → 2017-02-05 | Outpatient (CLI) | payer OTHER ==
[2017-02-05 15:38] LABS: Anisocytosis Slight; CH 29.6; CHCM 30.5; HCT 39.9 % (39.0-53.0); HDW 3.32; HGB 12.2 gm/dL (13.0-17.5); Hypochromasia Marked; MCHC 30.7 g/dL (31.0-37.0); MCV 97.5 fL (80.0-100.0); Macrocytosis Slight; Mean Platelet Volume 8.3; RBC 4.09 m/uL (4.30-5.90); RDW 16.2 % (11.5-15.5); WBC 11.9 k/uL (3.8-10.6)
[2017-02-05 15:49] LABS: Anion Gap 12 mmol/L; Blood Urea Nitrogen 22 mg/dL (9-20); Carbon Dioxide 21 mmol/L (22-30); Chloride 105 mmol/L (98-107); Non-African American GFR(MDRD) >60 (>60 ml/min/1.73 sqM); Potassium 5.1 mmol/L (3.5-5.1); Sodium 138 mmol/L (137-145)
== END | disposition home or self-care (01) ==
LOC: LABPAT 15:04
PROVIDERS: ATTEND Internal Medicine Cardiovascular Disease
DX: Z01.812 Encounter for preprocedural laboratory examination (principal); I34.0 Nonrheumatic mitral (valve) insufficiency; I48.2 Chronic atrial fibrillation
CPT/HCPCS: 80051; 82565; 84520; 85027

== ENCOUNTER → 2017-02-06 | Day surgery (SDC) | payer OTHER ==
[2017-02-05 11:07] VITALS: BMI 27.2
[~2017-02-06] MED LIST changes: +ALPRAZolam 0.25 MG TAB PO PRN; +ASPIRIN 325 MG TAB PO ONE; -DEXAMETHASONE SOD PHOSPHATE 10 MG/ML 1 ML VIAL IV ONE; +DIGOXIN 250 MCG TAB PO SCH; +DILTIAZEM ORAL 30 MG TAB PO SCH; -HEPARIN SODIUM,PORCINE 5,000 UNIT/ML 1 ML VIAL SQ ONE; -LIDOCAINE 1% 20 ML VIAL (10MG/ML) FOR IV START INTRADERMA PRN; +METOPROLOL TARTRATE 50 MG TAB PO SCH; +MIDAZOLAM 2 MG/2 ML VIAL IVP ONE; +MIDAZOLAM 2 MG/2 ML VIAL ONE; -ONDANSETRON 4 MG/2 ML VIAL IVP ONE; -PIPERACILLIN-TAZOBACTAM 3.375 GM in DEXTROSE/WATER 1 50ML.BAG IVPB ONE; -SCOPOLAMINE 1.5MG/72HR PATCH TRANSDERM ONE; +SODIUM CHLORIDE 0.9% 1,000 ML IV SCH; +SODIUM CHLORIDE 0.9% 1,000 ML in EMPTY BAG 1 BAG IV ONE; -VANCOMYCIN 1,150 MG in SODIUM CHLORIDE 0.9% 250 ML IVPB ONE; -VANCOMYCIN 1,250 MG in SODIUM CHLORIDE 0.9% 250 ML IVPB ONE; +WARFARIN 1 MG TAB PO SCH; +fentaNYL (PF) 50 MCG/ML 2 ML AMP ONE
[2017-02-06 08:15] VITALS: RESP 18
[2017-02-06 09:22] LABS: INR 1.4 (<1.2); Prothrombin Time 13.7 sec (9.0-12.0)
[2017-02-06] MEDS: BENZOCAINE SPRAY 1 SPRAY CAN MUCOUS MEM ONE ×2 (11:24→11:25)
[2017-02-06] MEDS: MIDAZOLAM 2 MG/2 ML VIAL IVP ONE ×3 (11:25→11:56)
[2017-02-06 13:16] VITALS: TEMP 98
[2017-02-06 15:11] VITALS: BP 127/77; PULSE 112
--- NOTE | 2017-02-06 16:04 | ECHOT ---
TRANSESOPHAGEAL ECHOCARDIOGRAM INDICATION: Mitral regurgitation. After obtaining informed consent, transesophageal echocardiogram was performed in left lateral position using an Omni plane probe. Local and IV sedation were obtained using Xylocaine spray and 3 mg of Versed. Patient tolerated the procedure well without any obvious immediate complications. Patient was in atrial fibrillation with poorly controlled ventricular rate. The cardiac catheterization that was to be done has been postponed. Will more optimally control his heart rate and bring him back at a later time. FINDINGS: 1. MITRAL VALVE: Mitral valve is anatomically abnormal. The posterior mitral leaflet appears with restricted leaflet mobility and there is severe posteriorly directed mitral regurgitation noted with reversal of flow in the pulmonary vein. There is also restricted mobility showing mitral stenosis. Left atrium appears severely enlarged. Right atrium and right ventricle appear enlarged. The left ventricle has normal size and systolic function. 2. Aortic valve is 3-leaflet valve and is free of stenosis or regurgitation. There is moderate tricuspid regurgitation noted. CONCLUSION: 1. This transesophageal echo reveals abnormal mitral valve leaflets secondary to prior infective endocarditis with and restricted posterior leaflet with severe posteriorly directed mitral regurgitation. There is also mitral stenosis and based on the transthoracic echo, he has at least moderate mitral stenosis. There is moderate tricuspid regurgitation noted. 2. There is severe left atrial enlargement. 3. There is moderate right atrial and right ventricular enlargement. 4. Left ventricular function is normal. PLAN: We will do a cardiac catheterization on him and consider referral to [facility] to address the mitral valve disease. Initially we were thinking we can do mitral valve clip but I am not sure simply doing a mitral valve clip is going to help this patient. He is someone who actually might need mitral replacement. MMODL / IJN: [id number] /
== END ==
LOC: CATHCVL 07:36
PROVIDERS: ATTEND Internal Medicine Cardiovascular Disease
DX: I08.1 Rheumatic disorders of both mitral and tricuspid valves (principal); I11.9 Hypertensive heart disease without heart failure; E78.2 Mixed hyperlipidemia; I48.2 Chronic atrial fibrillation; Z79.82 Long term (current) use of aspirin; Z79.899 Other long term (current) drug therapy
CPT/HCPCS: 93312; 93320; 93325; 85610; J2250

== ENCOUNTER 2017-03-26 06:52 | Day surgery (SDC) | payer OTHER ==
[~2017-03-26 06:52] MED LIST changes: +ALPRAZolam 0.5 MG TAB PO PRN; -ASPIRIN 325 MG TAB PO ONE; +ASPIRIN 325 MG TAB PO STA; -DIGOXIN 250 MCG TAB PO SCH; -DILTIAZEM ORAL 30 MG TAB PO SCH; -METOPROLOL TARTRATE 50 MG TAB PO SCH; -MIDAZOLAM 2 MG/2 ML VIAL IVP ONE; -MIDAZOLAM 2 MG/2 ML VIAL ONE; +NITROGLYCERIN SL TABS 0.4 MG TAB SUBLINGUAL PRN; -SODIUM CHLORIDE 0.9% 1,000 ML IV SCH; -WARFARIN 1 MG TAB PO SCH; -fentaNYL (PF) 50 MCG/ML 2 ML AMP ONE
[2017-03-26 07:19] VITALS: TEMP 98.5
[2017-03-26] MEDS ORDERED: fentaNYL (PF) 50 MCG/ML 2 ML AMP ONE (07:20)
[2017-03-26] MEDS ORDERED: LIDOCAINE 2% INJ 20 MG/ML (20 ML MDV) ONE (07:20)
[2017-03-26] MEDS ORDERED: MIDAZOLAM 2 MG/2 ML VIAL ONE (07:20)
[2017-03-26 07:30] LABS: INR 1.8 (<1.2); Prothrombin Time 17.7 sec (9.0-12.0)
[2017-03-26] MEDS ORDERED: MIDAZOLAM 2 MG/2 ML VIAL IVP ONE (07:40)
[2017-03-26] MEDS ORDERED: fentaNYL (PF) 50 MCG/ML 2 ML AMP IV ONE (07:40)
[2017-03-26] MEDS ORDERED: LIDOCAINE 2% INJ 20 MG/ML SQ ONE (07:42)
[2017-03-26] MEDS ORDERED: IOHEXOL 350 MG/ML 125ML BOTTLE INJ ONE (07:53)
[2017-03-26] MEDS ORDERED: RX INFO: IV CONTRAST WAS GIVEN 1 EACH MISC MISCELLANE PRN (08:01)
[2017-03-26] MEDS ORDERED: SODIUM CHLORIDE 0.9% 1,000 ML IV SCH (08:15)
--- NOTE | 2017-03-26 08:33 | CC ---
CARDIAC CATHETERIZATION REPORT INDICATION: History of infective endocarditis with mitral stenosis and regurgitation to prepare him for mitral valve replacement. PROCEDURE NOTE: After obtaining informed consent, left heart catheterization, coronary angiogram, and LV gram are performed via the right femoral artery using standard Rene catheters. Patient tolerated the procedure well without any obvious immediate complications. A femoral angiogram was performed and Angio-Seal was deployed for hemostasis. Patient received moderate conscious sedation. Total sedation time was 15 minutes. He is on Coumadin for chronic atrial fibrillation. Coumadin was held for 3 days prior to cath. His INR this morning is 1.8. I suggested to the patient that we postpone it and bring him back at a later date. This procedure has already been postponed in the past and the patient has problem with transportation and did not want to come back at a later date, so we decided to proceed with cardiac catheterization. We obtained vascular access following a single poke and we did not see any obvious hematoma at the end of the procedure. There is a risk of bleed and will watch him carefully. I was initially going to do a right and left heart catheterization, but decided to proceed with the left heart cath. FINDINGS: 1. HEMODYNAMICS: Left ventricular end-diastolic pressure is 10 to 12 mm. There is no significant gradient across the aortic valve. 2. LEFT VENTRICULOGRAM: Left ventriculogram was performed in URUGUAYAN position and shows dilated left ventricle with an ejection fraction of around 55%. There is 1 to 2+ mitral regurgitation noted. 3. ANGIOGRAPHIC DATA:. LEFT MAIN CORONARY ARTERY: Left main coronary artery is a normal-sized vessel and divides into left anterior descending coronary artery, circumflex coronary artery and ramus intermedius. LAD and its branches, ramus intermedius and circ are free of significant disease. Right coronary artery is a large dominant vessel and is free of significant disease. CONCLUSIONS: 1. Normal coronary arteries. 2. Dilated left ventricle with an ejection fraction of 55%. 3. Severe mitral stenosis and regurgitation based on transesophageal echo done last month. PLAN: Patient will be referred to [facility] for mitral valve replacement and he may also undergo tricuspid valve ring at the same time. MMODL / IJN: [id number] /
[2017-03-26 09:15] VITALS: RESP 18
[2017-03-26] MEDS ORDERED: HYDROcodone/APAP 5-325MG 1 EACH TAB ONE (09:46)
[2017-03-26] MEDS ORDERED: DILTIAZEM ORAL 30 MG TAB PO STA (10:21)
[2017-03-26] MEDS ORDERED: FUROSEMIDE 20 MG TAB PO STA (10:21)
[2017-03-26] MEDS ORDERED: METOPROLOL TARTRATE 50 MG TAB PO STA (10:21)
[2017-03-26] MEDS ORDERED: DIGOXIN 250 MCG TAB PO SCH (10:30)
[2017-03-26] MEDS ORDERED: DIGOXIN 250 MCG TAB PO STA (10:39)
[2017-03-26 13:37] VITALS: BP 105/73; PULSE 52
== END 2017-03-26 15:50 | disposition home or self-care (01) ==
LOC: CATHCVL 06:52
PROVIDERS: ATTEND Internal Medicine Cardiovascular Disease
DX: I34.0 Nonrheumatic mitral (valve) insufficiency (principal); I11.0 Hypertensive heart disease with heart failure; I48.2 Chronic atrial fibrillation; I50.32 Chronic diastolic (congestive) heart failure; E78.5 Hyperlipidemia, unspecified; I27.20 Pulmonary hypertension, unspecified; Z79.82 Long term (current) use of aspirin; Z79.899 Other long term (current) drug therapy; Z79.01 Long term (current) use of anticoagulants
CPT/HCPCS: 93460; 85610; C1760; C1894; C1769; J2001; J2250; J3010; Q9967